=== PATIENT | male | born 1950 | race Caucasian/White ===

== ENCOUNTER 2020-05-22 09:44 | Inpatient (IN) ==
[2020-05-22] MEDS ORDERED: Aspirin 81 MG TAB.CHEW PO ONE (09:48)
[2020-05-22 10:16] LABS: Basophils # 0.1 K/mcL (0.0-0.2); Basophils % 0.8 %; Eosinophils # 0.4 K/mcL (0.0-0.6); Eosinophils % 4.3 %; Hematocrit 48.9 % (37.5-50.1); Hemoglobin 15.3 g/dL (12.9-16.9); Immature Granulocytes % 0.2 % (0-4); Lymphocytes # 2.7 K/mcL (0.6-4.6); Lymphocytes % 32.2 %; Mean Corpuscular HGB Conc 31.3 g/dL (31.6-35.5); Mean Corpuscular Hemoglobin 30.2 pg (28.0-33.3); Mean Corpuscular Volume 96.4 fL (83.0-100.0); Mean Platelet Volume 9.7 fL (9.4-12.4); Monocytes # 0.6 K/mcL (0.0-1.3); Monocytes % 7.3 %; Neutrophils # 4.6 K/mcL (1.6-8.9); Platelet Count 289 K/mcL (140-400); Red Blood Count 5.07 M/mcL (4.19-5.50); Red Cell Distribution Width 13.3 % (11.5-14.5); Segmented Neutrophils % 55.2 %; White Blood Count 8.4 K/mcL (4.3-11.1)
[2020-05-22 10:21] LABS: Prothrombin Time 11.7 Seconds (9.4-12.1)
[2020-05-22 10:24] LABS: Activated Partial Thrombo Time 29.4 Seconds (26.0-36.0)
[2020-05-22] MEDS ORDERED: Isovue-370 500 ML BOTTLE IVP ONE (10:27)
[2020-05-22 10:34] LABS: BUN/Creatinine Ratio 18 (6-26); Blood Urea Nitrogen 16 mg/dL (8-23); Calcium 9.2 mg/dL (8.6-10.3); Carbon Dioxide 30 mEq/L (23-29); Chloride 103 mEq/L (98-107); Glucose 181 mg/dL (70-105); Osmolality,Calculated 292 (280-300); Potassium 4.6 mEq/L (3.5-5.1); Sodium 138 mEq/L (136-145); Troponin I 0.03 ng/mL (< 0.04); eGFR For African Americans > 60 (> 60); eGFR For Non-African Americans > 60 (> 60)
[2020-05-22] MEDS ORDERED: Azithromycin 500 MG in 0.9 % Sodium Chloride 250 ML IVPB ONE (11:52)
[2020-05-22] MEDS ORDERED: cefTRIAXone 1,000 MG in 0.9 % Sodium Chloride Mini Bag 100 ML IVPB ONE (11:52)
[2020-05-22] MEDS ORDERED: *HR* Heparin 5,000 UNIT/ML VIAL IVP PRN ×2 (11:53)
[2020-05-22] MEDS ORDERED: *HR* Heparin 5,000 UNIT/ML VIAL IVP ONE (11:53)
[2020-05-22] MEDS ORDERED: Naloxone 0.4 MG/ML INJ IVP PRN (11:57)
[2020-05-22] MEDS ORDERED: Dextrose Gel 15 GM/37.5 ML TUBE PO PRN ×2 (11:59)
[2020-05-22] MEDS ORDERED: D5% in Water 1,000 ML IVC PRN (11:59)
[2020-05-22] MEDS ORDERED: *HR* Dextrose 50 % in Water (Vial) 50 ML VIAL IVP PRN (11:59)
[2020-05-22] MEDS ORDERED: Perflutren Lipid Microsphere 1.3 ML in 0.9 % Sodium Chloride 8.7 ML IVP PRN (12:01)
[2020-05-22] MEDS ORDERED: Ipratropium/Albuterol Neb 3 ML IH ONE (12:12)
[2020-05-22 12:33] LABS: Hematocrit 45.9 % (37.5-50.1); Hemoglobin 14.9 g/dL (12.9-16.9); Mean Corpuscular HGB Conc 32.5 g/dL (31.6-35.5); Mean Corpuscular Hemoglobin 31.9 pg (28.0-33.3); Mean Corpuscular Volume 98.3 fL (83.0-100.0); Mean Platelet Volume 9.9 fL (9.4-12.4); Platelet Count 276 K/mcL (140-400); Red Blood Count 4.67 M/mcL (4.19-5.50); Red Cell Distribution Width 13.2 % (11.5-14.5); White Blood Count 7.9 K/mcL (4.3-11.1)
[2020-05-22 12:42] LABS: Heparin anti-factor XA UFH < 0.04 IU/mL (0.30-0.70)
[2020-05-22] MEDS ORDERED: cefTRIAXone 1,000 MG in Water for inj. (sterile) 10 ML IVP ONE (13:15)
[2020-05-22] MEDS: Levalbuterol Neb 1.25 MG/3 ML IH SCH ×3 (13:16→21:22)
[2020-05-22] MEDS: Heparin 25,000UNIT/250ML 1/2NS 25,000 UNIT/250 ML IV.SOLN IVC SCH (13:19)
[2020-05-22] MEDS: Insulin LISPRO 300 UNITS/3 ML VIAL SQ SCH ×3 (14:16→20:27)
[2020-05-22] MEDS ORDERED: Nitroglycerin 0.4 MG TAB.SUBL SL PRN (14:26)
[2020-05-22] MEDS: Sucralfate 1 GM TABLET PO SCH ×2 (15:24→22:21)
[2020-05-22] MEDS: Gabapentin 300 MG CAPSULE PO SCH (15:25)
[2020-05-22] MEDS: traZODone 50 MG TABLET PO SCH (22:21)
[2020-05-22] MEDS: rOPINIRole 1 MG TABLET PO SCH (22:21)
[2020-05-23 02:44] LABS: Chol/HDL Ratio 4.6 (0-4.9)
[2020-05-23] MEDS: Levalbuterol Neb 1.25 MG/3 ML IH SCH ×4 (04:28→21:49)
[2020-05-23] MEDS: Insulin LISPRO 300 UNITS/3 ML VIAL SQ SCH ×4 (09:38→20:36)
[2020-05-23] MEDS: Sucralfate 1 GM TABLET PO SCH ×4 (09:57→20:37)
[2020-05-23] MEDS: Gabapentin 300 MG CAPSULE PO SCH (09:57)
[2020-05-23] MEDS: Heparin 25,000UNIT/250ML 1/2NS 25,000 UNIT/250 ML IV.SOLN IVC SCH (09:59)
[2020-05-23] MEDS: Tiotropium 18 MCG inhalation IH SCH (10:17)
[2020-05-23 11:33] LABS: Estimated Average Glucose 263 mg/dl
[2020-05-23 13:38] LABS: Magnesium 1.9 mg/dL (1.6-2.6)
[2020-05-23 13:51] LABS: Thyroid Stimulating Hormone 1.217 mcIU/mL (0.340-5.600)
[2020-05-23] MEDS: traZODone 50 MG TABLET PO SCH (20:37)
[2020-05-23] MEDS: rOPINIRole 1 MG TABLET PO SCH (20:37)
[2020-05-23] MEDS ORDERED: Acetaminophen 325 MG TABLET PO PRN (21:06)
[2020-05-23] MEDS ORDERED: Ondansetron 4 MG/2 ML VIAL IVP PRN (22:03)
[2020-05-23] MEDS ORDERED: Ondansetron 4 MG/2 ML VIAL ONE (22:12)
[2020-05-24] MEDS: Levalbuterol Neb 1.25 MG/3 ML IH SCH ×4 (03:17→22:35)
[2020-05-24] MEDS: Heparin 25,000UNIT/250ML 1/2NS 25,000 UNIT/250 ML IV.SOLN IVC SCH (08:15)
[2020-05-24] MEDS: Sucralfate 1 GM TABLET PO SCH ×4 (08:16→20:12)
[2020-05-24] MEDS: Gabapentin 300 MG CAPSULE PO SCH (08:17)
[2020-05-24] MEDS: Insulin LISPRO 300 UNITS/3 ML VIAL SQ SCH ×4 (08:17→20:13)
[2020-05-24] MEDS ORDERED: Heparin 1,000 UNITS/500 mL 500 ML ONE (09:42)
[2020-05-24] MEDS ORDERED: 0.9 % Sodium Chloride 2,000 ML ONE (09:42)
[2020-05-24] MEDS ORDERED: ISOVUE-370 200 ML INFUS..BTL ONE ×2 (09:42→13:19)
[2020-05-24] MEDS ORDERED: *HR* Heparin 10,000 UNIT/10 ML VIAL ONE (09:42)
[2020-05-24] MEDS ORDERED: Nitroglycerin 1,000 MCG/10 ML VIAL IV ONE (09:42)
[2020-05-24] MEDS: Tiotropium 18 MCG inhalation IH SCH (09:54)
[2020-05-24] MEDS ORDERED: *HR* FentaNYL (PF) 100 MCG/2 ML VIAL ONE (11:07)
[2020-05-24] MEDS ORDERED: *HR* Midazolam HCl 2 MG/2 ML VIAL ONE (11:07)
[2020-05-24] MEDS ORDERED: *HR* Adenosine 6 MG/2 ML VIAL IVP ONE (13:28)
[2020-05-24] MEDS ORDERED: Adenosine 90 MG/30 ML MLS IV ONE (18:55)
[2020-05-24] MEDS: rOPINIRole 1 MG TABLET PO SCH (20:11)
[2020-05-24] MEDS: traZODone 50 MG TABLET PO SCH (20:12)
[2020-05-25] MEDS: Levalbuterol Neb 1.25 MG/3 ML IH SCH ×3 (03:34→15:32)
[2020-05-25] MEDS: Sucralfate 1 GM TABLET PO SCH ×3 (08:30→18:09)
[2020-05-25] MEDS: Gabapentin 300 MG CAPSULE PO SCH (08:30)
[2020-05-25] MEDS: Insulin LISPRO 300 UNITS/3 ML VIAL SQ SCH ×3 (08:31→17:36)
[2020-05-25] MEDS: Tiotropium 18 MCG inhalation IH SCH (10:08)
[2020-05-25] MEDS ORDERED: Aspirin 81 MG TAB.CHEW PO SCH (12:30)
[2020-05-25] MEDS: Heparin 25,000UNIT/250ML 1/2NS 25,000 UNIT/250 ML IV.SOLN IVC SCH (14:19)
[2020-05-25 14:44] VITALS: BP 124/76
[2020-05-25] MEDS ORDERED: Apixaban 5 MG TABLET PO SCH (17:33)
[2020-05-25] MEDS ORDERED: Isosorbide MONOnitrate (24 HR) 30 MG TAB.ER.24H PO SCH (17:45)
[2020-05-26] MEDS ORDERED: Metoprolol XL (24 HR) Succ 50 MG TAB.ER.24H PO SCH (09:00)
[2020-05-26] MEDS ORDERED: lisinopriL 5 MG TABLET PO SCH (09:00)
== END 2020-05-25 18:56 | disposition home or self-care (01) | DRG 287 ==
LOC: 3BNU 09:44 → EMEROOARM 09:44 → SUATTDRO 12:59 → 3BNU 13:45
PROVIDERS: ADMIT Family Medicine; ATTEND Internal Medicine

== ENCOUNTER 2020-06-06 01:49 | Observation (INO) ==
[2020-06-06] MEDS ORDERED: Naloxone 0.4 MG/ML INJ IVP PRN (02:14)
[2020-06-06] MEDS ORDERED: *HR* Heparin 5,000 UNIT/ML VIAL IVP PRN ×2 (02:57)
[2020-06-06] MEDS ORDERED: Heparin 25,000UNIT/250ML 1/2NS 25,000 UNIT/250 ML IV.SOLN IVC SCH ×2 (03:00→03:17)
[2020-06-06] MEDS ORDERED: D5% in Water 1,000 ML IVC PRN (03:22)
[2020-06-06] MEDS ORDERED: Dextrose Gel 15 GM/37.5 ML TUBE PO PRN ×2 (03:22)
[2020-06-06] MEDS ORDERED: *HR* Dextrose 50 % in Water (Vial) 50 ML VIAL IVP PRN (03:22)
[2020-06-06] MEDS ORDERED: DilTIAZem 50 MG/50 ML IV.SOLN IVC SCH (04:15)
[2020-06-06] MEDS ORDERED: *HR* Metoprolol 5 MG/5 ML VIAL IVP PRN (04:41)
[2020-06-06] MEDS: Insulin LISPRO 300 UNITS/3 ML VIAL SQ SCH ×3 (04:59→18:43)
[2020-06-06 05:19] LABS: Basophils % 0.4 %; Eosinophils # 0.2 K/mcL (0.0-0.6); Eosinophils % 2.1 %; Hematocrit 42.5 % (37.5-50.1); Hemoglobin 13.6 g/dL (12.9-16.9); INR 1.3; Immature Granulocytes % 0.2 % (0-4); Lymphocytes % 23.6 %; Mean Corpuscular Hemoglobin 31.3 pg (28.0-33.3); Mean Corpuscular Volume 97.9 fL (83.0-100.0); Mean Platelet Volume 10.3 fL (9.4-12.4); Monocytes # 0.6 K/mcL (0.0-1.3); Monocytes % 6.5 %; Neutrophils # 5.7 K/mcL (1.6-8.9); Platelet Count 254 K/mcL (140-400); Prothrombin Time 14.4 Seconds (9.4-12.1); Red Blood Count 4.34 M/mcL (4.19-5.50); Red Cell Distribution Width 12.9 % (11.5-14.5); Segmented Neutrophils % 67.2 %; White Blood Count 8.5 K/mcL (4.3-11.1)
[2020-06-06 05:34] LABS: BUN/Creatinine Ratio 16 (6-26); Blood Urea Nitrogen 13 mg/dL (8-23); Calcium 8.8 mg/dL (8.6-10.3); Carbon Dioxide 26 mEq/L (23-29); Chloride 104 mEq/L (98-107); Glucose 102 mg/dL (70-105); Magnesium 1.8 mg/dL (1.6-2.6); Osmolality,Calculated 284 (280-300); Potassium 4.1 mEq/L (3.5-5.1); Sodium 137 mEq/L (136-145); eGFR For African Americans > 60 (> 60); eGFR For Non-African Americans > 60 (> 60)
[2020-06-06 05:37] LABS: Activated Partial Thrombo Time 54.4 Seconds (26.0-36.0)
[2020-06-06] MEDS: Levalbuterol Neb 0.63 MG/3 ML IH SCH ×4 (06:32→21:27)
[2020-06-06] MEDS: Metoprolol XL (24 HR) Succ 50 MG TAB.ER.24H PO SCH (09:40)
[2020-06-06] MEDS: Aspirin 81 MG TAB.CHEW PO SCH (09:41)
[2020-06-06] MEDS: Isosorbide MONOnitrate (24 HR) 30 MG TAB.ER.24H PO SCH (13:27)
[2020-06-06] MEDS: Apixaban 5 MG TABLET PO SCH ×2 (13:27→19:49)
[2020-06-06] MEDS: lisinopriL 5 MG TABLET PO SCH (13:39)
[2020-06-06] MEDS: Ondansetron 4 MG/2 ML VIAL IVP PRN (19:51)
[2020-06-06] MEDS ORDERED: Insulin DETEMIR 100 UNIT/ML X5UNITS SQ SCH (21:00)
[2020-06-07] MEDS: Levalbuterol Neb 0.63 MG/3 ML IH SCH ×4 (00:02→11:31)
[2020-06-07] MEDS: Insulin LISPRO 300 UNITS/3 ML VIAL SQ SCH ×3 (01:51→12:02)
[2020-06-07] MEDS: Ondansetron 4 MG/2 ML VIAL IVP PRN (04:16)
[2020-06-07] MEDS ORDERED: Acetaminophen 325 MG TABLET PO PRN (04:28)
[2020-06-07 05:22] LABS: Basophils % 0.5 %; Eosinophils # 0.3 K/mcL (0.0-0.6); Eosinophils % 3.2 %; Hematocrit 40.3 % (37.5-50.1); Immature Granulocytes % 0.2 % (0-4); Lymphocytes # 2.6 K/mcL (0.6-4.6); Lymphocytes % 30.7 %; Mean Corpuscular HGB Conc 32.3 g/dL (31.6-35.5); Mean Corpuscular Hemoglobin 31.3 pg (28.0-33.3); Mean Corpuscular Volume 97.1 fL (83.0-100.0); Mean Platelet Volume 10.2 fL (9.4-12.4); Monocytes # 0.7 K/mcL (0.0-1.3); Monocytes % 7.8 %; Neutrophils # 4.8 K/mcL (1.6-8.9); Platelet Count 269 K/mcL (140-400); Red Blood Count 4.15 M/mcL (4.19-5.50); Red Cell Distribution Width 12.9 % (11.5-14.5); Segmented Neutrophils % 57.6 %; White Blood Count 8.4 K/mcL (4.3-11.1)
[2020-06-07 05:36] LABS: BUN/Creatinine Ratio 21 (6-26); Blood Urea Nitrogen 19 mg/dL (8-23); Calcium 9.2 mg/dL (8.6-10.3); Carbon Dioxide 30 mEq/L (23-29); Chloride 102 mEq/L (98-107); Glucose 124 mg/dL (70-105); Osmolality,Calculated 288 (280-300); Potassium 4.1 mEq/L (3.5-5.1); Sodium 137 mEq/L (136-145); eGFR For African Americans > 60 (> 60); eGFR For Non-African Americans > 60 (> 60)
[2020-06-07] MEDS: Metoprolol XL (24 HR) Succ 50 MG TAB.ER.24H PO SCH (08:53)
[2020-06-07] MEDS: Aspirin 81 MG TAB.CHEW PO SCH (08:53)
[2020-06-07] MEDS: Apixaban 5 MG TABLET PO SCH (08:53)
[2020-06-07] MEDS: Isosorbide MONOnitrate (24 HR) 30 MG TAB.ER.24H PO SCH (08:53)
[2020-06-07] MEDS: lisinopriL 5 MG TABLET PO SCH (08:53)
[2020-06-07 11:14] VITALS: BP 114/63
== END 2020-06-07 13:52 | disposition home or self-care (01) ==
LOC: 2ANU → SUATTDRO 01:49
PROVIDERS: ADMIT Internal Medicine; ATTEND Internal Medicine

== ENCOUNTER 2020-06-29 00:33 | Observation (INO) ==
[2020-06-29] MEDS ORDERED: Albuterol 2.5 MG/3 ML NEBULIZER IH PRN (03:23)
[2020-06-29] MEDS ORDERED: Naloxone 0.4 MG/ML INJ IVP PRN (03:23)
[2020-06-29] MEDS ORDERED: Ondansetron 4 MG/2 ML VIAL IVP PRN (03:23)
[2020-06-29] MEDS ORDERED: Acetaminophen 325 MG TABLET PO ONE (03:23)
[2020-06-29] MEDS ORDERED: Dextrose Gel 15 GM/37.5 ML TUBE PO PRN ×2 (03:44)
[2020-06-29] MEDS ORDERED: *HR* Dextrose 50 % in Water (Vial) 50 ML VIAL IVP PRN (03:44)
[2020-06-29] MEDS ORDERED: D5% in Water 1,000 ML IVC PRN (03:44)
[2020-06-29 05:05] LABS: Adenovirus Not Detected (Not Detect); Bordetella Pertussis Not Detected (Not Detect); Chlamydophila pneumoniae Not Detected (Not Detect); Coronavirus 229E Not Detected (Not Detect); Coronavirus HKU1 Not Detected (Not Detect); Coronavirus NL63 Not Detected (Not Detect); Coronavirus OC43 Not Detected (Not Detect); Human Metapneumovirus Not Detected (Not Detect); Human Rhinovirus/Enterovirus Not Detected (Not Detect); Influenza A Subtype 2009 H1 Not Detected (Not Detect); Influenza B Not Detected (Not Detect); Mycoplasma pneumoniae Not Detected (Not Detect); Parainfluenza Virus 1 Not Detected (Not Detect); Parainfluenza Virus 2 Not Detected (Not Detect); Parainfluenza Virus 3 Not Detected (Not Detect); Parainfluenza Virus 4 Not Detected (Not Detect); Respiratory Syncytial Virus Not Detected (Not Detect); SARS-CoV-2 Not Detected (Not Detect)
[2020-06-29 05:39] LABS: Hematocrit 25.3 % (37.5-50.1); Hemoglobin 7.6 g/dL (12.9-16.9); Mean Corpuscular Hemoglobin 29.5 pg (28.0-33.3); Mean Corpuscular Volume 98.1 fL (83.0-100.0); Platelet Count 284 K/mcL (140-400); Red Blood Count 2.58 M/mcL (4.19-5.50); Red Cell Distribution Width 13.7 % (11.5-14.5); White Blood Count 9.4 K/mcL (4.3-11.1)
[2020-06-29 05:59] LABS: BUN/Creatinine Ratio 32 (6-26); Blood Urea Nitrogen 27 mg/dL (8-23); Calcium 8.5 mg/dL (8.6-10.3); Carbon Dioxide 26 mEq/L (23-29); Chloride 106 mEq/L (98-107); Chol/HDL Ratio 3.1 (0-4.9); Cholesterol 78 mg/dL (< 200); Glucose 124 mg/dL (70-105); HDL Cholesterol 25 mg/dL (40-59); LDL Cholesterol,Calculated 37 mg/dL (< 100); Magnesium 1.8 mg/dL (1.6-2.6); Osmolality,Calculated 295 (280-300); Phosphorous 3.4 mg/dL (2.7-4.5); Sodium 139 mEq/L (136-145); Triglycerides 78 mg/dL (< 150); eGFR For African Americans > 60 (> 60); eGFR For Non-African Americans > 60 (> 60)
[2020-06-29] MEDS ORDERED: Furosemide 20 MG/2 ML VIAL IVP ONE (06:24)
[2020-06-29] MEDS ORDERED: 0.9 % Sodium Chloride 250 ML IVC SCH (06:45)
[2020-06-29] MEDS: Ipratropium/Albuterol Neb 3 ML IH PRN ×2 (07:58→20:39)
[2020-06-29 09:15] LABS: Estimated Average Glucose 229 mg/dl; Hemoglobin A1C 9.6 %
[2020-06-29] MEDS: Insulin LISPRO 300 UNITS/3 ML VIAL SUBQ SCH ×4 (09:17→21:10)
[2020-06-29] MEDS ORDERED: Lidocaine -MPF 2% 2 ML VIAL ONE (12:13)
[2020-06-29] MEDS ORDERED: *HR* Propofol 200 MG/20 ML VIAL IVP ONE ×2 (12:14→12:34)
[2020-06-29] MEDS ORDERED: *HR* PHENYLEPHRINE 1,000 MCG/10 ML SYRINGE IVP ONE (12:23)
[2020-06-29] MEDS: Pantoprazole 40 MG VIAL IVP SCH (17:41)
[2020-06-29] MEDS: Furosemide 20 MG/2 ML VIAL IVP SCH (17:41)
[2020-06-29 18:17] LABS: Basophils # 0.1 K/mcL (0.0-0.2); Basophils % 0.6 %; Eosinophils # 0.3 K/mcL (0.0-0.6); Eosinophils % 2.9 %; Hematocrit 30.5 % (37.5-50.1); Immature Granulocytes % 0.4 % (0-4); Lymphocytes % 20.4 %; Mean Corpuscular HGB Conc 30.2 g/dL (31.6-35.5); Mean Corpuscular Hemoglobin 29.3 pg (28.0-33.3); Mean Corpuscular Volume 97.1 fL (83.0-100.0); Mean Platelet Volume 9.9 fL (9.4-12.4); Monocytes # 0.5 K/mcL (0.0-1.3); Monocytes % 4.8 %; Neutrophils # 6.8 K/mcL (1.6-8.9); Platelet Count 283 K/mcL (140-400); Red Blood Count 3.14 M/mcL (4.19-5.50); Red Cell Distribution Width 14.2 % (11.5-14.5); Segmented Neutrophils % 70.9 %; White Blood Count 9.6 K/mcL (4.3-11.1)
[2020-06-29 18:27] LABS: Hemoglobin 9.2 g/dL (12.9-16.9)
[2020-06-29] MEDS: Apixaban 5 MG TABLET PO SCH (21:10)
[2020-06-29] MEDS: Sucralfate 1 GM TABLET PO SCH (23:45)
[2020-06-30] MEDS: Pantoprazole 40 MG VIAL IVP SCH ×2 (04:53→18:22)
[2020-06-30] MEDS: traZODone 50 MG TABLET PO PRN ×2 (04:53→20:47)
[2020-06-30] MEDS: Ipratropium/Albuterol Neb 3 ML IH PRN ×3 (08:25→22:09)
[2020-06-30] MEDS: Insulin LISPRO 300 UNITS/3 ML VIAL SUBQ SCH ×4 (10:07→20:43)
[2020-06-30] MEDS: Apixaban 5 MG TABLET PO SCH ×2 (10:13→20:44)
[2020-06-30] MEDS: Furosemide 20 MG/2 ML VIAL IVP SCH ×2 (10:13→18:21)
[2020-06-30] MEDS ORDERED: rOPINIRole 1 MG TABLET PO STA (10:23)
[2020-06-30 10:31] LABS: Basophils % 0.3 %; Eosinophils # 0.3 K/mcL (0.0-0.6); Eosinophils % 3.4 %; Hematocrit 27.1 % (37.5-50.1); Hemoglobin 8.5 g/dL (12.9-16.9); Immature Granulocytes % 0.4 % (0-4); Lymphocytes # 1.9 K/mcL (0.6-4.6); Lymphocytes % 20.4 %; Mean Corpuscular HGB Conc 31.4 g/dL (31.6-35.5); Mean Corpuscular Hemoglobin 29.6 pg (28.0-33.3); Mean Corpuscular Volume 94.4 fL (83.0-100.0); Mean Platelet Volume 10.1 fL (9.4-12.4); Monocytes # 0.6 K/mcL (0.0-1.3); Monocytes % 6.4 %; Neutrophils # 6.3 K/mcL (1.6-8.9); Platelet Count 279 K/mcL (140-400); Red Blood Count 2.87 M/mcL (4.19-5.50); Red Cell Distribution Width 13.9 % (11.5-14.5); Segmented Neutrophils % 69.1 %; White Blood Count 9.1 K/mcL (4.3-11.1)
[2020-06-30 10:51] LABS: BUN/Creatinine Ratio 22 (6-26); Blood Urea Nitrogen 20 mg/dL (8-23); Calcium 8.8 mg/dL (8.6-10.3); Carbon Dioxide 31 mEq/L (23-29); Chloride 103 mEq/L (98-107); Glucose 163 mg/dL (70-105); Magnesium 1.8 mg/dL (1.6-2.6); Osmolality,Calculated 294 (280-300); Phosphorous 3.4 mg/dL (2.7-4.5); Potassium 3.6 mEq/L (3.5-5.1); Sodium 139 mEq/L (136-145); eGFR For African Americans > 60 (> 60); eGFR For Non-African Americans > 60 (> 60)
[2020-06-30 14:10] LABS: Hematocrit 25.4 % (37.5-50.1); Hemoglobin 8.2 g/dL (12.9-16.9)
[2020-06-30] MEDS: Sucralfate 1 GM TABLET PO SCH (20:44)
[2020-06-30] MEDS ORDERED: rOPINIRole 1 MG TABLET PO SCH (21:00)
[2020-06-30] MEDS ORDERED: Acetaminophen 325 MG TABLET PO PRN (23:39)
[2020-07-01] MEDS ORDERED: Melatonin 3 MG TABLET PO ONE (01:31)
[2020-07-01] MEDS: Pantoprazole 40 MG VIAL IVP SCH (05:50)
[2020-07-01] MEDS: Ipratropium/Albuterol Neb 3 ML IH PRN (05:53)
[2020-07-01 07:27] LABS: Hematocrit 26.8 % (37.5-50.1); Hemoglobin 8.3 g/dL (12.9-16.9); Mean Corpuscular Hemoglobin 29.6 pg (28.0-33.3); Mean Corpuscular Volume 95.7 fL (83.0-100.0); Mean Platelet Volume 9.7 fL (9.4-12.4); Platelet Count 290 K/mcL (140-400); Red Cell Distribution Width 13.7 % (11.5-14.5); White Blood Count 7.6 K/mcL (4.3-11.1)
[2020-07-01 07:44] VITALS: BP 110/56
[2020-07-01 07:50] LABS: Alanine Aminotransferase 8 Units/L (7-52); Albumin 3.7 g/dL (3.5-5.7); Albumin/Globulin Ratio 1.6 (1.1-2.2); Alkaline Phosphatase 70 Units/L (34-104); Aspartate Amino Transferase 9 Units/L (13-39); BUN/Creatinine Ratio 18 (6-26); Bilirubin,Total 0.5 mg/dL (0.3-1.0); Blood Urea Nitrogen 16 mg/dL (8-23); Carbon Dioxide 33 mEq/L (23-29); Chloride 102 mEq/L (98-107); Globulin 2.3 g/dL (2.4-3.5); Glucose 185 mg/dL (70-105); Osmolality,Calculated 296 (280-300); Potassium 3.7 mEq/L (3.5-5.1); Sodium 140 mEq/L (136-145); eGFR For African Americans > 60 (> 60); eGFR For Non-African Americans > 60 (> 60)
[2020-07-01] MEDS: Insulin LISPRO 300 UNITS/3 ML VIAL SUBQ SCH ×2 (08:49→11:17)
[2020-07-01] MEDS: Furosemide 20 MG/2 ML VIAL IVP SCH (08:50)
[2020-07-01] MEDS: Apixaban 5 MG TABLET PO SCH (08:50)
[2020-07-01] MEDS ORDERED: Metoprolol XL (24 HR) Succ 25 MG TAB.ER.24H PO SCH (09:00)
== END 2020-07-01 11:26 | disposition home or self-care (01) ==
LOC: 3ANU → SUATTDRO 01:45
PROVIDERS: ADMIT Internal Medicine; ATTEND Internal Medicine

== ENCOUNTER 2020-07-13 06:33 | Observation (INO) ==
[2020-07-13] MEDS ORDERED: Naloxone 0.4 MG/ML INJ IVP PRN (09:33)
[2020-07-13] MEDS ORDERED: Ondansetron 4 MG/2 ML VIAL IVP PRN (09:33)
[2020-07-13] MEDS ORDERED: Ipratropium/Albuterol Neb 3 ML IH ONE (09:33)
[2020-07-13] MEDS ORDERED: Ipratropium/Albuterol Neb 3 ML IH PRN (09:33)
[2020-07-13] MEDS ORDERED: Acetaminophen 325 MG TABLET PO PRN (09:33)
[2020-07-13 10:49] LABS: Magnesium 1.9 mg/dL (1.6-2.6)
[2020-07-13 10:50] LABS: Troponin I < 0.03 ng/mL (< 0.04)
[2020-07-13] MEDS: Apixaban 5 MG TABLET PO SCH ×2 (11:15→20:22)
[2020-07-13] MEDS: Metoprolol XL (24 HR) Succ 50 MG TAB.ER.24H PO SCH (11:15)
[2020-07-13] MEDS: Isosorbide MONOnitrate (24 HR) 30 MG TAB.ER.24H PO SCH (11:16)
[2020-07-13] MEDS ORDERED: MethylPREDNISolone 40 MG/ML VIAL IVP ONE (13:22)
[2020-07-13] MEDS ORDERED: Dextrose Gel 15 GM/37.5 ML TUBE PO PRN ×2 (13:53)
[2020-07-13] MEDS ORDERED: D5% in Water 1,000 ML IVC PRN (13:53)
[2020-07-13] MEDS ORDERED: *HR* Dextrose 50 % in Water (Vial) 50 ML VIAL IVP PRN (13:53)
[2020-07-13] MEDS: Furosemide 40 MG/4 ML VIAL IVP SCH (14:03)
[2020-07-13] MEDS: Sucralfate 1 GM TABLET PO SCH ×2 (15:56→20:23)
[2020-07-13] MEDS: Azithromycin 250 MG TABLET PO SCH (15:56)
[2020-07-13] MEDS: Ipratropium/Albuterol Neb 3 ML IH SCH ×3 (16:06→23:23)
[2020-07-13 16:19] LABS: Hematocrit 27.1 % (37.5-50.1); Hemoglobin 8.2 g/dL (12.9-16.9)
[2020-07-13] MEDS: traZODone 50 MG TABLET PO SCH (20:22)
[2020-07-13] MEDS: rOPINIRole 1 MG TABLET PO SCH (20:22)
[2020-07-13] MEDS ORDERED: Magnesium Sulfate 1 GM/102 ML PIGGYBACK IVPB ONE (22:15)
[2020-07-14] MEDS ORDERED: Furosemide 40 MG/4 ML VIAL IVP ONE ×2 (02:23→02:45)
[2020-07-14 03:12] LABS: Hematocrit 26.6 % (37.5-50.1); Hemoglobin 8.2 g/dL (12.9-16.9); Mean Corpuscular HGB Conc 30.8 g/dL (31.6-35.5); Mean Corpuscular Hemoglobin 28.3 pg (28.0-33.3); Mean Corpuscular Volume 91.7 fL (83.0-100.0); Mean Platelet Volume 9.9 fL (9.4-12.4); Platelet Count 342 K/mcL (140-400); Red Cell Distribution Width 14.3 % (11.5-14.5); White Blood Count 4.9 K/mcL (4.3-11.1)
[2020-07-14] MEDS: Ipratropium/Albuterol Neb 3 ML IH SCH ×6 (03:32→23:51)
[2020-07-14 03:36] LABS: BUN/Creatinine Ratio 21 (6-26); Blood Urea Nitrogen 19 mg/dL (8-23); Carbon Dioxide 26 mEq/L (23-29); Chloride 103 mEq/L (98-107); Glucose 208 mg/dL (70-105); Osmolality,Calculated 292 (280-300); Phosphorous 3.8 mg/dL (2.7-4.5); Potassium 4.3 mEq/L (3.5-5.1); Sodium 137 mEq/L (136-145); Troponin I 0.03 ng/mL (< 0.04); eGFR For African Americans > 60 (> 60); eGFR For Non-African Americans > 60 (> 60)
[2020-07-14 09:29] LABS: Hemoglobin 8.1 g/dL (12.9-16.9)
[2020-07-14 09:48] LABS: Basophils % 0.3 %; Eosinophils # 0.2 K/mcL (0.0-0.6); Eosinophils % 2.4 %; Immature Granulocytes % 0.6 % (0-4); Lymphocytes # 1.3 K/mcL (0.6-4.6); Lymphocytes % 18.5 %; Mean Corpuscular HGB Conc 31.3 g/dL (31.6-35.5); Mean Corpuscular Hemoglobin 27.7 pg (28.0-33.3); Mean Corpuscular Volume 88.7 fL (83.0-100.0); Monocytes # 0.5 K/mcL (0.0-1.3); Platelet Count 348 K/mcL (140-400); Red Blood Count 2.92 M/mcL (4.19-5.50); Red Cell Distribution Width 14.1 % (11.5-14.5); Segmented Neutrophils % 71.2 %
[2020-07-14] MEDS: Isosorbide MONOnitrate (24 HR) 30 MG TAB.ER.24H PO SCH (09:48)
[2020-07-14] MEDS: Furosemide 40 MG/4 ML VIAL IVP SCH (09:48)
[2020-07-14] MEDS: lisinopriL 5 MG TABLET PO SCH (09:49)
[2020-07-14 09:52] LABS: Troponin I < 0.03 ng/mL (< 0.04)
[2020-07-14] MEDS: Metoprolol XL (24 HR) Succ 50 MG TAB.ER.24H PO SCH ×2 (10:19→13:39)
[2020-07-14] MEDS: Sucralfate 1 GM TABLET PO SCH ×4 (10:26→21:41)
[2020-07-14] MEDS: Nicotine 21 MG PATCH.TD24 TD SCH (10:28)
[2020-07-14] MEDS: Azithromycin 250 MG TABLET PO SCH (10:29)
[2020-07-14] MEDS: predniSONE 20 MG TABLET PO SCH (10:29)
[2020-07-14 10:38] LABS: BUN/Creatinine Ratio 19 (6-26); Blood Urea Nitrogen 19 mg/dL (8-23); Carbon Dioxide 26 mEq/L (23-29); Chloride 103 mEq/L (98-107); Glucose 221 mg/dL (70-105); Magnesium 1.9 mg/dL (1.6-2.6); Osmolality,Calculated 295 (280-300); Sodium 138 mEq/L (136-145); eGFR For African Americans > 60 (> 60); eGFR For Non-African Americans > 60 (> 60)
[2020-07-14] MEDS ORDERED: *HR* Metoprolol 5 MG/5 ML VIAL IVP PRN (11:31)
[2020-07-14] MEDS ORDERED: Dextrose Gel 15 GM/37.5 ML TUBE PO PRN ×2 (13:23)
[2020-07-14] MEDS ORDERED: *HR* Dextrose 50 % in Water (Vial) 50 ML VIAL IVP PRN (13:23)
[2020-07-14] MEDS ORDERED: D5% in Water 1,000 ML IVC PRN (13:23)
[2020-07-14] MEDS ORDERED: *HR* LORazepam 0.5 MG TABLET PO ONE (14:08)
[2020-07-14] MEDS: Insulin LISPRO 300 UNITS/3 ML VIAL SUBQ SCH ×2 (16:11→21:34)
[2020-07-14] MEDS ORDERED: Nitroglycerin 0.4 MG TAB.SUBL SL PRN (20:34)
[2020-07-14] MEDS: *HR* LORazepam 1 MG TABLET PO PRN (21:41)
[2020-07-14] MEDS: traZODone 50 MG TABLET PO SCH (21:42)
[2020-07-14] MEDS: rOPINIRole 1 MG TABLET PO SCH (21:42)
[2020-07-15 02:53] LABS: Basophils % 0.1 %; Hematocrit 24.6 % (37.5-50.1); Hemoglobin 7.7 g/dL (12.9-16.9); Immature Granulocytes % 0.4 % (0-4); Lymphocytes # 1.7 K/mcL (0.6-4.6); Lymphocytes % 18.6 %; Mean Corpuscular HGB Conc 31.3 g/dL (31.6-35.5); Mean Corpuscular Hemoglobin 28.4 pg (28.0-33.3); Mean Corpuscular Volume 90.8 fL (83.0-100.0); Mean Platelet Volume 10.4 fL (9.4-12.4); Monocytes # 0.7 K/mcL (0.0-1.3); Monocytes % 7.5 %; Neutrophils # 6.8 K/mcL (1.6-8.9); Platelet Count 304 K/mcL (140-400); Red Blood Count 2.71 M/mcL (4.19-5.50); Red Cell Distribution Width 14.2 % (11.5-14.5); Segmented Neutrophils % 73.4 %; White Blood Count 9.2 K/mcL (4.3-11.1)
[2020-07-15 03:02] LABS: Estimated Average Glucose 200 mg/dl; Hemoglobin A1C 8.6 %
[2020-07-15 03:13] LABS: BUN/Creatinine Ratio 27 (6-26); Blood Urea Nitrogen 25 mg/dL (8-23); Calcium 8.8 mg/dL (8.6-10.3); Carbon Dioxide 27 mEq/L (23-29); Chloride 103 mEq/L (98-107); Glucose 250 mg/dL (70-105); Magnesium 2.1 mg/dL (1.6-2.6); Osmolality,Calculated 297 (280-300); Potassium 4.1 mEq/L (3.5-5.1); Sodium 137 mEq/L (136-145); eGFR For African Americans > 60 (> 60); eGFR For Non-African Americans > 60 (> 60)
[2020-07-15 03:37] LABS: Folate 7.7 ng/mL (3.0-16.0)
[2020-07-15] MEDS: Ipratropium/Albuterol Neb 3 ML IH SCH ×5 (03:49→20:33)
[2020-07-15 04:03] LABS: Ferritin < 8 ng/mL (20-250); Iron < 10 mcg/dL (65-175); Transferrin 314 mg/dL (203-362)
[2020-07-15] MEDS: Insulin LISPRO 300 UNITS/3 ML VIAL SUBQ SCH ×4 (07:59→21:21)
[2020-07-15] MEDS: Nicotine 21 MG PATCH.TD24 TD SCH (08:03)
[2020-07-15] MEDS: Isosorbide MONOnitrate (24 HR) 60 MG TAB.ER.24H PO SCH (08:04)
[2020-07-15] MEDS: Azithromycin 250 MG TABLET PO SCH (08:04)
[2020-07-15] MEDS: lisinopriL 5 MG TABLET PO SCH (08:04)
[2020-07-15] MEDS: predniSONE 20 MG TABLET PO SCH (08:05)
[2020-07-15] MEDS: Sucralfate 1 GM TABLET PO SCH ×4 (08:05→21:59)
[2020-07-15] MEDS: Spironolactone 25 MG TABLET PO SCH (08:05)
[2020-07-15] MEDS: Metoprolol XL (24 HR) Succ 50 MG TAB.ER.24H PO SCH (08:05)
[2020-07-15] MEDS: Gabapentin 300 MG CAPSULE PO SCH (08:06)
[2020-07-15] MEDS ORDERED: Cyanocobalamin (B-12) 1,000 MCG/ML VIAL SQ ONE (08:20)
[2020-07-15] MEDS: Iron Sucrose Complex 250 MG in 0.9 % Sodium Chloride 250 ML IVPB SCH (09:41)
[2020-07-15] MEDS: rOPINIRole 1 MG TABLET PO SCH (21:59)
[2020-07-15] MEDS: traZODone 50 MG TABLET PO SCH (21:59)
[2020-07-15] MEDS: *HR* LORazepam 1 MG TABLET PO PRN (22:03)
[2020-07-16] MEDS: Ipratropium/Albuterol Neb 3 ML IH SCH ×4 (00:03→12:34)
[2020-07-16 02:29] LABS: Basophils % 0.2 %; Eosinophils % 0.1 %; Hematocrit 25.3 % (37.5-50.1); Hemoglobin 7.6 g/dL (12.9-16.9); Immature Granulocytes % 0.5 % (0-4); Lymphocytes % 20.3 %; Mean Corpuscular Volume 93.4 fL (83.0-100.0); Mean Platelet Volume 10.3 fL (9.4-12.4); Monocytes # 0.7 K/mcL (0.0-1.3); Monocytes % 7.6 %; Neutrophils # 6.9 K/mcL (1.6-8.9); Platelet Count 305 K/mcL (140-400); Red Blood Count 2.71 M/mcL (4.19-5.50); Red Cell Distribution Width 14.1 % (11.5-14.5); Segmented Neutrophils % 71.3 %; White Blood Count 9.7 K/mcL (4.3-11.1)
[2020-07-16 02:49] LABS: BUN/Creatinine Ratio 24 (6-26); Blood Urea Nitrogen 23 mg/dL (8-23); Calcium 8.9 mg/dL (8.6-10.3); Carbon Dioxide 30 mEq/L (23-29); Chloride 104 mEq/L (98-107); Glucose 245 mg/dL (70-105); Magnesium 2.2 mg/dL (1.6-2.6); Osmolality,Calculated 302 (280-300); Potassium 4.2 mEq/L (3.5-5.1); Sodium 140 mEq/L (136-145); eGFR For African Americans > 60 (> 60); eGFR For Non-African Americans > 60 (> 60)
[2020-07-16] MEDS ORDERED: Pantoprazole 40 MG VIAL IVP SCH (09:00)
[2020-07-16] MEDS: Insulin LISPRO 300 UNITS/3 ML VIAL SUBQ SCH ×2 (09:26→11:42)
[2020-07-16] MEDS: lisinopriL 5 MG TABLET PO SCH ×2 (09:51→11:41)
[2020-07-16] MEDS: Metoprolol XL (24 HR) Succ 50 MG TAB.ER.24H PO SCH ×2 (09:51→11:41)
[2020-07-16] MEDS: Gabapentin 300 MG CAPSULE PO SCH ×2 (09:52→11:41)
[2020-07-16] MEDS: Spironolactone 25 MG TABLET PO SCH ×2 (09:52→11:42)
[2020-07-16] MEDS: Isosorbide MONOnitrate (24 HR) 60 MG TAB.ER.24H PO SCH ×2 (09:52→11:41)
[2020-07-16] MEDS: Azithromycin 250 MG TABLET PO SCH ×2 (09:52→11:42)
[2020-07-16] MEDS: Sucralfate 1 GM TABLET PO SCH ×3 (09:53→11:41)
[2020-07-16] MEDS: predniSONE 20 MG TABLET PO SCH ×2 (09:53→11:41)
[2020-07-16] MEDS: Iron Sucrose Complex 250 MG in 0.9 % Sodium Chloride 250 ML IVPB SCH (09:53)
[2020-07-16] MEDS: Cyanocobalamin (B-12) 1,000 MCG TABLET PO SCH ×2 (09:53→11:41)
[2020-07-16] MEDS: Nicotine 21 MG PATCH.TD24 TD SCH ×2 (10:10→11:25)
[2020-07-16 11:16] VITALS: BP 109/64
== END 2020-07-16 14:05 | disposition home or self-care (01) ==
LOC: 3NENU → SUATTDRO 08:26
PROVIDERS: ADMIT Internal Medicine; ATTEND Pharmacist

== ENCOUNTER 2020-07-29 22:14 | Inpatient (IN) ==
[2020-07-30] MEDS ORDERED: Naloxone 0.4 MG/ML INJ IVP PRN (01:42)
[2020-07-30 02:15] LABS: Hemoglobin 8.1 g/dL (12.9-16.9); Immature Granulocytes % 0.4 % (0-4)
[2020-07-30 02:16] LABS: Basophils # 0.1 K/mcL (0.0-0.2); Basophils % 0.6 %; Eosinophils # 0.2 K/mcL (0.0-0.6); Eosinophils % 2.2 %; Hematocrit 27.3 % (37.5-50.1); INR 1.5; Lymphocytes # 2.3 K/mcL (0.6-4.6); Lymphocytes % 22.8 %; Mean Corpuscular HGB Conc 29.7 g/dL (31.6-35.5); Mean Corpuscular Hemoglobin 28.3 pg (28.0-33.3); Mean Corpuscular Volume 95.5 fL (83.0-100.0); Mean Platelet Volume 9.6 fL (9.4-12.4); Monocytes # 0.6 K/mcL (0.0-1.3); Monocytes % 6.1 %; Platelet Count 385 K/mcL (140-400); Prothrombin Time 17.3 Seconds (9.4-12.1); Red Blood Count 2.86 M/mcL (4.19-5.50); Red Cell Distribution Width 17.3 % (11.5-14.5); Segmented Neutrophils % 67.9 %; White Blood Count 10.1 K/mcL (4.3-11.1)
[2020-07-30 02:19] LABS: Activated Partial Thrombo Time 32.4 Seconds (26.0-36.0)
[2020-07-30 02:22] LABS: Neutrophils # 6.9 K/mcL (1.6-8.9)
[2020-07-30 02:33] LABS: Alanine Aminotransferase 10 Units/L (7-52); Albumin 3.6 g/dL (3.5-5.7); Albumin/Globulin Ratio 1.6 (1.1-2.2); Alkaline Phosphatase 62 Units/L (34-104); Aspartate Amino Transferase 10 Units/L (13-39); BUN/Creatinine Ratio 26 (6-26); Bilirubin,Total 0.6 mg/dL (0.3-1.0); Blood Urea Nitrogen 27 mg/dL (8-23); Calcium 8.9 mg/dL (8.6-10.3); Carbon Dioxide 31 mEq/L (23-29); Chloride 103 mEq/L (98-107); Globulin 2.2 g/dL (2.4-3.5); Glucose 112 mg/dL (70-105); Osmolality,Calculated 296 (280-300); Potassium 4.4 mEq/L (3.5-5.1); Sodium 140 mEq/L (136-145); Total Protein 5.8 g/dL (6.4-8.9); eGFR For African Americans > 60 (> 60); eGFR For Non-African Americans > 60 (> 60)
[2020-07-30 02:38] LABS: Anisocytosis 1+ (Not Present); Platelet Estimate Normal (Normal); Poikilocytosis 1+ (Not Present); Troponin I 0.17 ng/mL (< 0.04)
[2020-07-30 02:51] LABS: Thyroid Stimulating Hormone 0.482 mcIU/mL (0.340-5.600)
[2020-07-30] MEDS ORDERED: Perflutren Lipid Microsphere 1.3 ML in 0.9 % Sodium Chloride 8.7 ML IVP PRN (04:35)
[2020-07-30] MEDS: Melatonin 3 MG TABLET PO PRN (04:41)
[2020-07-30] MEDS ORDERED: Albuterol 2.5 MG/3 ML NEBULIZER IH PRN (05:04)
[2020-07-30] MEDS ORDERED: Nitroglycerin 0.4 MG TAB.SUBL SL PRN (05:04)
[2020-07-30] MEDS ORDERED: *HR* Dextrose 50 % in Water (Vial) 50 ML VIAL IVP PRN (05:07)
[2020-07-30] MEDS ORDERED: Dextrose Gel 15 GM/37.5 ML TUBE PO PRN ×2 (05:07)
[2020-07-30] MEDS ORDERED: D5% in Water 1,000 ML IVC PRN (05:07)
[2020-07-30] MEDS: Sucralfate 1 GM TABLET PO SCH ×4 (08:37→20:46)
[2020-07-30] MEDS: Gabapentin 300 MG CAPSULE PO SCH (08:37)
[2020-07-30] MEDS: Metoprolol XL (24 HR) Succ 50 MG TAB.ER.24H PO SCH (08:37)
[2020-07-30] MEDS: Isosorbide MONOnitrate (24 HR) 60 MG TAB.ER.24H PO SCH (08:38)
[2020-07-30] MEDS: Apixaban 5 MG TABLET PO SCH ×2 (08:38→20:46)
[2020-07-30] MEDS: Nicotine 21 MG PATCH.TD24 TD SCH (08:38)
[2020-07-30] MEDS: Cyanocobalamin (B-12) 1,000 MCG TABLET PO SCH (08:38)
[2020-07-30] MEDS: Spironolactone 25 MG TABLET PO SCH (08:38)
[2020-07-30] MEDS: Tiotropium 10 INH DOSE IH SCH (09:31)
[2020-07-30] MEDS: Insulin LISPRO 300 UNITS/3 ML VIAL SUBQ SCH ×3 (09:37→16:15)
[2020-07-30] MEDS: lisinopriL 5 MG TABLET PO SCH (11:22)
[2020-07-30] MEDS: Ondansetron ODT 4 MG TAB.RAPDIS SL PRN (18:26)
[2020-07-30] MEDS: rOPINIRole 1 MG TABLET PO SCH (20:45)
[2020-07-30] MEDS: traZODone 50 MG TABLET PO SCH (20:46)
[2020-07-31] MEDS: Melatonin 3 MG TABLET PO PRN ×2 (03:25→20:43)
[2020-07-31] MEDS ORDERED: 0.9 % Sodium Chloride 500 ML IVC ONE (03:39)
[2020-07-31 04:25] LABS: Hematocrit 26.3 % (37.5-50.1); Mean Corpuscular HGB Conc 30.4 g/dL (31.6-35.5); Mean Corpuscular Hemoglobin 28.6 pg (28.0-33.3); Mean Corpuscular Volume 93.9 fL (83.0-100.0); Mean Platelet Volume 9.9 fL (9.4-12.4); Platelet Count 370 K/mcL (140-400); Red Cell Distribution Width 16.4 % (11.5-14.5); White Blood Count 7.9 K/mcL (4.3-11.1)
[2020-07-31 04:42] LABS: BUN/Creatinine Ratio 22 (6-26); Blood Urea Nitrogen 19 mg/dL (8-23); Carbon Dioxide 31 mEq/L (23-29); Chloride 102 mEq/L (98-107); Glucose 126 mg/dL (70-105); Osmolality,Calculated 290 (280-300); Potassium 4.3 mEq/L (3.5-5.1); Sodium 138 mEq/L (136-145); eGFR For African Americans > 60 (> 60); eGFR For Non-African Americans > 60 (> 60)
[2020-07-31] MEDS: Tiotropium 10 INH DOSE IH SCH (07:45)
[2020-07-31] MEDS: Ondansetron ODT 4 MG TAB.RAPDIS SL PRN (08:17)
[2020-07-31] MEDS: Insulin LISPRO 300 UNITS/3 ML VIAL SUBQ SCH ×3 (08:17→17:03)
[2020-07-31] MEDS: Sucralfate 1 GM TABLET PO SCH ×4 (08:17→20:43)
[2020-07-31] MEDS ORDERED: *HR* Promethazine 25 MG/ML VIAL IM ONE (08:23)
[2020-07-31] MEDS: Nicotine 21 MG PATCH.TD24 TD SCH (09:42)
[2020-07-31] MEDS: Metoprolol XL (24 HR) Succ 50 MG TAB.ER.24H PO SCH (10:14)
[2020-07-31] MEDS: Cyanocobalamin (B-12) 1,000 MCG TABLET PO SCH (10:15)
[2020-07-31] MEDS: lisinopriL 5 MG TABLET PO SCH (10:15)
[2020-07-31] MEDS: Apixaban 5 MG TABLET PO SCH (10:15)
[2020-07-31] MEDS: Gabapentin 300 MG CAPSULE PO SCH (10:15)
[2020-07-31] MEDS: Spironolactone 25 MG TABLET PO SCH (10:15)
[2020-07-31] MEDS: Isosorbide MONOnitrate (24 HR) 60 MG TAB.ER.24H PO SCH (10:15)
[2020-07-31 10:18] LABS: Troponin I 0.07 ng/mL (< 0.04)
[2020-07-31 13:12] LABS: Chol/HDL Ratio 3.2 (0-4.9)
[2020-07-31] MEDS: traZODone 50 MG TABLET PO SCH (20:43)
[2020-07-31] MEDS: rOPINIRole 1 MG TABLET PO SCH (20:43)
[2020-08-01] MEDS: *HR* LORazepam 1 MG TABLET PO PRN ×2 (02:33→19:45)
[2020-08-01 02:57] LABS: Hematocrit 26.8 % (37.5-50.1); Hemoglobin 8.2 g/dL (12.9-16.9); Mean Corpuscular HGB Conc 30.6 g/dL (31.6-35.5); Mean Corpuscular Hemoglobin 28.6 pg (28.0-33.3); Mean Corpuscular Volume 93.4 fL (83.0-100.0); Mean Platelet Volume 9.7 fL (9.4-12.4); Platelet Count 376 K/mcL (140-400); Red Blood Count 2.87 M/mcL (4.19-5.50); White Blood Count 7.3 K/mcL (4.3-11.1)
[2020-08-01 03:16] LABS: BUN/Creatinine Ratio 14 (6-26); Blood Urea Nitrogen 10 mg/dL (8-23); Calcium 9.2 mg/dL (8.6-10.3); Carbon Dioxide 32 mEq/L (23-29); Chloride 102 mEq/L (98-107); Glucose 126 mg/dL (70-105); Osmolality,Calculated 285 (280-300); Potassium 4.4 mEq/L (3.5-5.1); Sodium 137 mEq/L (136-145); eGFR For African Americans > 60 (> 60); eGFR For Non-African Americans > 60 (> 60)
[2020-08-01 03:40] LABS: Estimated Average Glucose 186 mg/dl; Hemoglobin A1C 8.1 %
[2020-08-01] MEDS: Tiotropium 10 INH DOSE IH SCH (07:46)
[2020-08-01] MEDS: Insulin LISPRO 300 UNITS/3 ML VIAL SUBQ SCH ×3 (08:53→17:30)
[2020-08-01] MEDS: Nicotine 21 MG PATCH.TD24 TD SCH (08:54)
[2020-08-01] MEDS: Gabapentin 300 MG CAPSULE PO SCH (08:54)
[2020-08-01] MEDS: Sucralfate 1 GM TABLET PO SCH ×4 (08:55→19:45)
[2020-08-01] MEDS: Isosorbide MONOnitrate (24 HR) 30 MG TAB.ER.24H PO SCH (08:55)
[2020-08-01] MEDS: Metoprolol XL (24 HR) Succ 50 MG TAB.ER.24H PO SCH (08:55)
[2020-08-01] MEDS: Cyanocobalamin (B-12) 1,000 MCG TABLET PO SCH (08:55)
[2020-08-01] MEDS: lisinopriL 5 MG TABLET PO SCH (10:06)
[2020-08-01] MEDS: Spironolactone 25 MG TABLET PO SCH (10:06)
[2020-08-01] MEDS: Furosemide 20 MG TABLET PO SCH (10:06)
[2020-08-01] MEDS: Aspirin Enteric Coated 81 MG Tablet PO SCH (13:03)
[2020-08-01] MEDS: Melatonin 3 MG TABLET PO PRN (19:45)
[2020-08-01] MEDS: traZODone 50 MG TABLET PO SCH (19:45)
[2020-08-02] MEDS: *HR* LORazepam 1 MG TABLET PO PRN (06:25)
[2020-08-02 08:05] LABS: Hemoglobin 9.4 g/dL (12.9-16.9); Mean Corpuscular HGB Conc 29.4 g/dL (31.6-35.5); Mean Corpuscular Hemoglobin 27.7 pg (28.0-33.3); Mean Corpuscular Volume 94.4 fL (83.0-100.0); Mean Platelet Volume 9.6 fL (9.4-12.4); Platelet Count 424 K/mcL (140-400); Red Blood Count 3.39 M/mcL (4.19-5.50)
[2020-08-02 08:08] LABS: Basophils % 0.6 %; Eosinophils # 0.3 K/mcL (0.0-0.6); Eosinophils % 4.9 %; Hematocrit 32.5 % (37.5-50.1); Hemoglobin 9.7 g/dL (12.9-16.9); Immature Granulocytes % 0.3 % (0-4); Lymphocytes # 1.7 K/mcL (0.6-4.6); Lymphocytes % 26.7 %; Mean Corpuscular HGB Conc 29.8 g/dL (31.6-35.5); Mean Corpuscular Hemoglobin 28.1 pg (28.0-33.3); Mean Corpuscular Volume 94.2 fL (83.0-100.0); Mean Platelet Volume 9.6 fL (9.4-12.4); Monocytes # 0.5 K/mcL (0.0-1.3); Monocytes % 7.7 %; Neutrophils # 3.9 K/mcL (1.6-8.9); Platelet Count 425 K/mcL (140-400); Red Blood Count 3.45 M/mcL (4.19-5.50); Segmented Neutrophils % 59.8 %; White Blood Count 6.5 K/mcL (4.3-11.1)
[2020-08-02] MEDS: Tiotropium 10 INH DOSE IH SCH (08:23)
[2020-08-02 08:24] LABS: BUN/Creatinine Ratio 15 (6-26); Blood Urea Nitrogen 12 mg/dL (8-23); Calcium 9.1 mg/dL (8.6-10.3); Carbon Dioxide 32 mEq/L (23-29); Chloride 102 mEq/L (98-107); Glucose 136 mg/dL (70-105); Osmolality,Calculated 292 (280-300); Potassium 4.2 mEq/L (3.5-5.1); Sodium 140 mEq/L (136-145); eGFR For African Americans > 60 (> 60); eGFR For Non-African Americans > 60 (> 60)
[2020-08-02] MEDS: Insulin LISPRO 300 UNITS/3 ML VIAL SUBQ SCH ×2 (08:30→11:43)
[2020-08-02] MEDS: Aspirin Enteric Coated 81 MG Tablet PO SCH (08:48)
[2020-08-02] MEDS: Nicotine 21 MG PATCH.TD24 TD SCH (08:48)
[2020-08-02] MEDS: Furosemide 20 MG TABLET PO SCH (08:49)
[2020-08-02] MEDS: Gabapentin 300 MG CAPSULE PO SCH (08:49)
[2020-08-02] MEDS: Sucralfate 1 GM TABLET PO SCH ×2 (08:49→11:43)
[2020-08-02] MEDS: Metoprolol XL (24 HR) Succ 50 MG TAB.ER.24H PO SCH (08:49)
[2020-08-02] MEDS: Spironolactone 25 MG TABLET PO SCH (08:49)
[2020-08-02] MEDS: Cyanocobalamin (B-12) 1,000 MCG TABLET PO SCH (08:49)
[2020-08-02] MEDS: Isosorbide MONOnitrate (24 HR) 30 MG TAB.ER.24H PO SCH (08:49)
[2020-08-02] MEDS: lisinopriL 5 MG TABLET PO SCH (08:50)
[2020-08-02 11:33] VITALS: BP 101/65
== END 2020-08-02 16:05 | disposition home health service (06) ==
LOC: 2ANU → SUATTDRO 07-30 01:33
PROVIDERS: ADMIT Student in an Organized Health Care Education/Training Program; ATTEND Internal Medicine

== ENCOUNTER 2020-08-09 12:48 | Inpatient (IN) ==
[2020-08-09] MEDS ORDERED: CeFAZolin Syr 2,000MG/20 ML 2,000 MG/20 ML SYRINGE IVPB ONE (13:46)
[2020-08-09] MEDS ORDERED: Ondansetron 4 MG/2 ML VIAL IVP PRN (13:51)
[2020-08-09] MEDS ORDERED: Albuterol 2.5 MG/3 ML NEBULIZER IH PRN ×2 (13:51→19:36)
[2020-08-09] MEDS ORDERED: *HR* OxyCODONE Immed Rel 5 MG TABLET PO PRN ×2 (13:51→19:36)
[2020-08-09] MEDS ORDERED: Acetaminophen IV 1,000 MG/100 ML BAG IVPB ONE (13:51)
[2020-08-09] MEDS ORDERED: *HR* FentaNYL (PF) 100 MCG/2 ML VIAL IVP PRN (13:51)
[2020-08-09] MEDS ORDERED: Heparin 1,000 UNITS/500 mL 500 ML ONE (13:52)
[2020-08-09] MEDS ORDERED: Protamine Sulfate 50 MG/5 ML VIAL IVP ONE (13:52)
[2020-08-09] MEDS ORDERED: *HR* Rocuronium Bromide 50 MG/5 ML VIAL ONE (14:00)
[2020-08-09] MEDS ORDERED: *HR* FentaNYL (PF) 100 MCG/2 ML VIAL ONE (14:00)
[2020-08-09] MEDS ORDERED: *HR* Propofol 200 MG/20 ML VIAL IVP ONE (14:00)
[2020-08-09] MEDS ORDERED: Dexamethasone 4 MG/ML VIAL ONE (14:00)
[2020-08-09] MEDS ORDERED: *HR* Succinylcholine 200 MG/10 ML VIAL IVP ONE (14:00)
[2020-08-09] MEDS ORDERED: *HR* Remifentanil 2 MG VIAL IVP ONE (14:00)
[2020-08-09] MEDS ORDERED: Lidocaine -MPF 4% 5 ML AMPUL ONE (14:00)
[2020-08-09] MEDS ORDERED: Ondansetron 4 MG/2 ML VIAL ONE (14:00)
[2020-08-09] MEDS ORDERED: Lidocaine -MPF 2% 2 ML VIAL ONE (14:00)
[2020-08-09] MEDS ORDERED: Vancomycin 1,500 MG/265 ML IV.SOLN IVPB ONE (14:06)
[2020-08-09] MEDS ORDERED: *HR* Midazolam HCl 2 MG/2 ML VIAL ONE (14:16)
[2020-08-09] MEDS ORDERED: Vancomycin 1,000 MG, Sodium Chloride IRRigation 1,000 ML IR ONE (14:30)
[2020-08-09] MEDS ORDERED: EPHEDrine 50 MG/ML VIAL ONE (15:13)
[2020-08-09] MEDS ORDERED: *HR* Heparin 5,000 UNIT/ML VIAL ONE ×2 (15:47→16:47)
[2020-08-09] MEDS ORDERED: Ringers Solution, Lactated 1,000 ML ONE (19:18)
[2020-08-09] MEDS ORDERED: Dextrose Gel 15 GM/37.5 ML TUBE PO PRN ×2 (19:36)
[2020-08-09] MEDS ORDERED: *HR* Dextrose 50 % in Water (Vial) 50 ML VIAL IVP PRN (19:36)
[2020-08-09] MEDS ORDERED: Acetaminophen 325 MG TABLET PO PRN (19:36)
[2020-08-09] MEDS ORDERED: Naloxone 0.4 MG/ML INJ IVP PRN (19:36)
[2020-08-09] MEDS ORDERED: *HR* HYDROcodone/Acet 5/325 mg TABLET PO PRN (19:36)
[2020-08-09] MEDS ORDERED: *HR* Labetalol 20 MG/4 ML SYRINGE IVP PRN (19:36)
[2020-08-09] MEDS ORDERED: 0.9 % Sodium Chloride 500 ML IVC SCH (19:36)
[2020-08-09] MEDS ORDERED: *HR* LORazepam 1 MG TABLET PO PRN (19:36)
[2020-08-09] MEDS ORDERED: Nitroglycerin 0.4 MG TAB.SUBL SL PRN (19:36)
[2020-08-09] MEDS ORDERED: D5% in Water 1,000 ML IVC PRN (19:36)
[2020-08-09] MEDS: Sucralfate 1 GM TABLET PO SCH (20:42)
[2020-08-09] MEDS: CeFAZolin 2 GM/120 ML BAG IVPB SCH (20:42)
[2020-08-09] MEDS ORDERED: traZODone 50 MG TABLET PO SCH (21:00)
[2020-08-09] MEDS ORDERED: lisinopriL 5 MG TABLET PO SCH (21:00)
[2020-08-09] MEDS ORDERED: Insulin LISPRO 300 UNITS/3 ML VIAL SUBQ SCH (21:00)
[2020-08-09] MEDS: Insulin LISPRO 300 UNITS/3 ML VIAL SUBQ SCH (21:15)
[2020-08-09] MEDS: *HR* Metoprolol 5 MG/5 ML VIAL IVP SCH (21:15)
[2020-08-10] MEDS: *HR* Metoprolol 5 MG/5 ML VIAL IVP SCH ×2 (00:36→08:16)
[2020-08-10] MEDS ORDERED: Vancomycin 1,500 MG/265 ML IV.SOLN IVPB ONE (03:00)
[2020-08-10] MEDS: CeFAZolin 2 GM/120 ML BAG IVPB SCH (04:39)
[2020-08-10] MEDS ORDERED: *HR* Heparin 5,000 UNIT/ML VIAL SQ SCH ×2 (06:00)
[2020-08-10 07:27] VITALS: BP 103/54
[2020-08-10] MEDS: Insulin LISPRO 300 UNITS/3 ML VIAL SUBQ SCH (08:16)
[2020-08-10] MEDS: Sucralfate 1 GM TABLET PO SCH (08:19)
[2020-08-10] MEDS ORDERED: Metoprolol XL (24 HR) Succ 25 MG TAB.ER.24H PO SCH (09:00)
[2020-08-10] MEDS ORDERED: Furosemide 20 MG TABLET PO SCH (09:00)
[2020-08-10] MEDS ORDERED: Aspirin Enteric Coated 81 MG Tablet PO SCH (09:00)
[2020-08-10] MEDS ORDERED: Cyanocobalamin (B-12) 1,000 MCG TABLET PO SCH (09:00)
[2020-08-10] MEDS ORDERED: Nicotine 21 MG PATCH.TD24 TD SCH (09:00)
[2020-08-10] MEDS ORDERED: Spironolactone 25 MG TABLET PO SCH (09:00)
[2020-08-10] MEDS ORDERED: Isosorbide MONOnitrate (24 HR) 30 MG TAB.ER.24H PO SCH (09:00)
[2020-08-10] MEDS ORDERED: Gabapentin 300 MG CAPSULE PO SCH (09:00)
[2020-08-10] MEDS ORDERED: Tiotropium 10 INH DOSE IH SCH (10:00)
== END 2020-08-10 11:48 | disposition home health service (06) | DRG 37 ==
LOC: SAMDAY 12:48 → 2NNU 20:17
PROVIDERS: ADMIT Surgery; ATTEND Surgery

== ENCOUNTER 2020-09-06 10:33 | Inpatient (IN) ==
[2020-09-06] MEDS ORDERED: Pantoprazole 40 MG VIAL IVP ONE (10:59)
[2020-09-06] MEDS ORDERED: 0.9 % Sodium Chloride 250 ML ONE ×2 (11:04→23:04)
[2020-09-06 11:08] LABS: Hematocrit 19.5 % (37.5-50.1); Mean Corpuscular HGB Conc 28.7 g/dL (31.6-35.5); Mean Corpuscular Hemoglobin 25.3 pg (28.0-33.3); Mean Corpuscular Volume 88.2 fL (83.0-100.0); Platelet Count 331 K/mcL (140-400); Red Blood Count 2.21 M/mcL (4.19-5.50); Red Cell Distribution Width 17.2 % (11.5-14.5)
[2020-09-06 11:11] LABS: Hemoglobin 5.6 g/dL (12.9-16.9)
[2020-09-06 11:33] LABS: Albumin/Globulin Ratio 1.6 (1.1-2.2); Bilirubin,Direct 0.1 mg/dL (0.0-0.2); Bilirubin,Indirect 0.4 mg/dL (0.0-1.0); Bilirubin,Total 0.5 mg/dL (0.3-1.0); Calcium 9.6 mg/dL (8.6-10.3); Globulin 2.5 g/dL (2.4-3.5); Potassium 4.8 mEq/L (3.5-5.1); Total Protein 6.5 g/dL (6.4-8.9)
[2020-09-06] MEDS ORDERED: Naloxone 0.4 MG/ML INJ IVP PRN (11:42)
[2020-09-06 11:48] LABS: Troponin I 0.13 ng/mL (< 0.04)
[2020-09-06] MEDS: Ondansetron 4 MG/2 ML VIAL IVP PRN (12:50)
[2020-09-06] MEDS ORDERED: Albuterol 2.5 MG/3 ML NEBULIZER IH PRN (12:54)
[2020-09-06] MEDS ORDERED: *HR* Metoprolol 5 MG/5 ML VIAL IVP PRN (12:57)
[2020-09-06] MEDS: Pantoprazole 40 MG VIAL IVP SCH (17:48)
[2020-09-06 20:15] LABS: Basophils % 0.4 %; Eosinophils # 0.3 K/mcL (0.0-0.6); Hematocrit 22.3 % (37.5-50.1); Hemoglobin 6.8 g/dL (12.9-16.9); Immature Granulocytes % 0.4 % (0-4); Lymphocytes # 2.2 K/mcL (0.6-4.6); Lymphocytes % 29.5 %; Mean Corpuscular HGB Conc 30.5 g/dL (31.6-35.5); Mean Corpuscular Hemoglobin 26.3 pg (28.0-33.3); Mean Corpuscular Volume 86.1 fL (83.0-100.0); Mean Platelet Volume 10.3 fL (9.4-12.4); Monocytes # 0.7 K/mcL (0.0-1.3); Monocytes % 9.4 %; Neutrophils # 4.1 K/mcL (1.6-8.9); Platelet Count 280 K/mcL (140-400); Red Blood Count 2.59 M/mcL (4.19-5.50); Red Cell Distribution Width 16.4 % (11.5-14.5); Segmented Neutrophils % 56.3 %; White Blood Count 7.3 K/mcL (4.3-11.1)
[2020-09-06 23:08] LABS: Adenovirus Not Detected (Not Detect); Bordetella Pertussis Not Detected (Not Detect); Chlamydophila pneumoniae Not Detected (Not Detect); Coronavirus 229E Not Detected (Not Detect); Coronavirus HKU1 Not Detected (Not Detect); Coronavirus NL63 Not Detected (Not Detect); Coronavirus OC43 Not Detected (Not Detect); Human Metapneumovirus Not Detected (Not Detect); Human Rhinovirus/Enterovirus Not Detected (Not Detect); Influenza A Subtype 2009 H1 Not Detected (Not Detect); Influenza B Not Detected (Not Detect); Mycoplasma pneumoniae Not Detected (Not Detect); Parainfluenza Virus 1 Not Detected (Not Detect); Parainfluenza Virus 2 Not Detected (Not Detect); Parainfluenza Virus 3 Not Detected (Not Detect); Parainfluenza Virus 4 Not Detected (Not Detect); Respiratory Syncytial Virus Not Detected (Not Detect); SARS-CoV-2 Not Detected (Not Detect)
[2020-09-07 01:06] LABS: Basophils % 0.6 %; Eosinophils # 0.3 K/mcL (0.0-0.6); Eosinophils % 4.6 %; Hematocrit 23.5 % (37.5-50.1); Hemoglobin 7.2 g/dL (12.9-16.9); Immature Granulocytes % 0.3 % (0-4); Lymphocytes # 1.6 K/mcL (0.6-4.6); Lymphocytes % 24.8 %; Mean Corpuscular HGB Conc 30.6 g/dL (31.6-35.5); Mean Corpuscular Hemoglobin 26.9 pg (28.0-33.3); Mean Corpuscular Volume 87.7 fL (83.0-100.0); Mean Platelet Volume 10.5 fL (9.4-12.4); Monocytes # 0.6 K/mcL (0.0-1.3); Monocytes % 8.8 %; Platelet Count 314 K/mcL (140-400); Red Blood Count 2.68 M/mcL (4.19-5.50); Red Cell Distribution Width 16.6 % (11.5-14.5); Segmented Neutrophils % 60.9 %; White Blood Count 6.6 K/mcL (4.3-11.1)
[2020-09-07 01:17] LABS: Calcium 9.1 mg/dL (8.6-10.3); Potassium 4.8 mEq/L (3.5-5.1)
[2020-09-07] MEDS: Pantoprazole 40 MG VIAL IVP SCH ×2 (04:50→17:33)
[2020-09-07 06:15] LABS: Hematocrit 24.8 % (37.5-50.1); Hemoglobin 7.6 g/dL (12.9-16.9); Mean Corpuscular HGB Conc 30.6 g/dL (31.6-35.5); Mean Corpuscular Hemoglobin 26.8 pg (28.0-33.3); Mean Corpuscular Volume 87.3 fL (83.0-100.0); Mean Platelet Volume 10.4 fL (9.4-12.4); Platelet Count 328 K/mcL (140-400); Red Blood Count 2.84 M/mcL (4.19-5.50); Red Cell Distribution Width 16.4 % (11.5-14.5); White Blood Count 7.2 K/mcL (4.3-11.1)
[2020-09-07] MEDS ORDERED: Aspirin Enteric Coated 81 MG Tablet PO SCH (09:00)
[2020-09-07] MEDS: 0.9 % Sodium Chloride 500 ML IVC SCH ×2 (09:20→19:40)
[2020-09-07] MEDS ORDERED: Lidocaine -MPF 2% 2 ML VIAL ONE ×3 (09:52→10:32)
[2020-09-07] MEDS ORDERED: Ringers Solution, Lactated 1,000 ML IVC ONE (11:26)
[2020-09-07] MEDS: Tiotropium 10 INH DOSE IH SCH (11:30)
[2020-09-07] MEDS: Metoprolol XL (24 HR) Succ 50 MG TAB.ER.24H PO SCH (11:35)
[2020-09-07] MEDS ORDERED: 0.9 % Sodium Chloride 250 ML ONE (13:56)
[2020-09-07] MEDS: Ondansetron 4 MG/2 ML VIAL IVP PRN (13:57)
[2020-09-07] MEDS ORDERED: 0.9 % Sodium Chloride 250 ML IVC SCH (15:00)
[2020-09-07] MEDS ORDERED: rOPINIRole 1 MG TABLET PO ONE (17:51)
[2020-09-07 19:12] LABS: Hematocrit 24.3 % (37.5-50.1); Hemoglobin 7.5 g/dL (12.9-16.9); Mean Corpuscular HGB Conc 30.9 g/dL (31.6-35.5); Mean Corpuscular Hemoglobin 26.2 pg (28.0-33.3); Mean Platelet Volume 10.3 fL (9.4-12.4); Platelet Count 278 K/mcL (140-400); Red Blood Count 2.86 M/mcL (4.19-5.50); Red Cell Distribution Width 15.9 % (11.5-14.5); White Blood Count 6.7 K/mcL (4.3-11.1)
[2020-09-07] MEDS: *HR* LORazepam 1 MG TABLET PO SCH (19:34)
[2020-09-08 02:10] LABS: Hematocrit 25.7 % (37.5-50.1); Hemoglobin 7.9 g/dL (12.9-16.9); Mean Corpuscular HGB Conc 30.7 g/dL (31.6-35.5); Mean Corpuscular Hemoglobin 26.3 pg (28.0-33.3); Mean Corpuscular Volume 85.7 fL (83.0-100.0); Mean Platelet Volume 10.2 fL (9.4-12.4); Platelet Count 288 K/mcL (140-400); Red Cell Distribution Width 15.9 % (11.5-14.5); White Blood Count 6.6 K/mcL (4.3-11.1)
[2020-09-08 03:13] LABS: BUN/Creatinine Ratio 33 (6-26); Blood Urea Nitrogen 28 mg/dL (8-23); Calcium 9.2 mg/dL (8.6-10.3); Carbon Dioxide 25 mEq/L (23-29); Chloride 104 mEq/L (98-107); Glucose 104 mg/dL (70-105); Osmolality,Calculated 288 (280-300); Potassium 4.6 mEq/L (3.5-5.1); Sodium 136 mEq/L (136-145); eGFR For African Americans > 60 (> 60); eGFR For Non-African Americans > 60 (> 60)
[2020-09-08] MEDS: Pantoprazole 40 MG VIAL IVP SCH (05:11)
[2020-09-08] MEDS: Metoprolol XL (24 HR) Succ 50 MG TAB.ER.24H PO SCH (07:38)
[2020-09-08] MEDS: *HR* LORazepam 1 MG TABLET PO SCH ×2 (07:39→20:12)
[2020-09-08] MEDS: Tiotropium 10 INH DOSE IH SCH (07:44)
[2020-09-08] MEDS: polyethylene glycoL 3350 17 GM POWD.PACK PO SCH ×2 (15:32→20:12)
[2020-09-08] MEDS: Ondansetron 4 MG/2 ML VIAL IVP PRN (17:55)
[2020-09-08] MEDS ORDERED: *HR* Dextrose 50 % in Water (Vial) 50 ML VIAL IVP PRN (19:09)
[2020-09-08] MEDS ORDERED: Dextrose Gel 15 GM/37.5 ML TUBE PO PRN ×2 (19:09)
[2020-09-08] MEDS ORDERED: D5% in Water 1,000 ML IVC PRN (19:09)
[2020-09-08] MEDS ORDERED: Insulin DETEMIR 100 UNIT/ML X5UNITS SUBQ SCH (21:00)
[2020-09-08] MEDS ORDERED: Insulin LISPRO 300 UNITS/3 ML VIAL SUBQ SCH (21:00)
[2020-09-09 02:12] LABS: Hematocrit 26.2 % (37.5-50.1); Hemoglobin 7.9 g/dL (12.9-16.9); Mean Corpuscular HGB Conc 30.2 g/dL (31.6-35.5); Mean Corpuscular Hemoglobin 25.6 pg (28.0-33.3); Mean Corpuscular Volume 85.1 fL (83.0-100.0); Mean Platelet Volume 10.6 fL (9.4-12.4); Platelet Count 317 K/mcL (140-400); Red Blood Count 3.08 M/mcL (4.19-5.50); Red Cell Distribution Width 15.9 % (11.5-14.5); White Blood Count 7.1 K/mcL (4.3-11.1)
[2020-09-09 02:35] LABS: BUN/Creatinine Ratio 22 (6-26); Blood Urea Nitrogen 17 mg/dL (8-23); Calcium 9.1 mg/dL (8.6-10.3); Carbon Dioxide 27 mEq/L (23-29); Chloride 105 mEq/L (98-107); Glucose 145 mg/dL (70-105); Osmolality,Calculated 288 (280-300); Potassium 4.7 mEq/L (3.5-5.1); Sodium 137 mEq/L (136-145); eGFR For African Americans > 60 (> 60); eGFR For Non-African Americans > 60 (> 60)
[2020-09-09] MEDS ORDERED: Bisacodyl 10 MG RECTAL SUPPOSITORY RC ONE (07:19)
[2020-09-09] MEDS: Tiotropium 10 INH DOSE IH SCH (07:40)
[2020-09-09] MEDS: polyethylene glycoL 3350 17 GM POWD.PACK PO SCH (08:28)
[2020-09-09] MEDS: *HR* LORazepam 1 MG TABLET PO SCH (08:29)
[2020-09-09] MEDS: Metoprolol XL (24 HR) Succ 50 MG TAB.ER.24H PO SCH (08:29)
[2020-09-09] MEDS: Insulin LISPRO 300 UNITS/3 ML VIAL SUBQ SCH ×2 (08:30→12:28)
[2020-09-09 10:01] VITALS: BP 106/65
== END 2020-09-09 13:35 | disposition home or self-care (01) | DRG 377 ==
LOC: EMEROOARM 10:33 → 2NNU 10:33 → SUATTDRO 09-07 20:58 → 3ANU 09-09 09:42
PROVIDERS: ADMIT Internal Medicine; ATTEND Internal Medicine

== ENCOUNTER 2020-09-24 18:48 | Observation (INO) ==
[2020-09-24 19:43] LABS: Basophils % 0.3 %; Eosinophils # 1.6 K/mcL (0.0-0.6); Eosinophils % 16.6 %; Hematocrit 27.4 % (37.5-50.1); Hemoglobin 8.1 g/dL (12.9-16.9); Immature Granulocytes % 0.2 % (0-4); Lymphocytes % 20.2 %; Mean Corpuscular HGB Conc 29.6 g/dL (31.6-35.5); Mean Corpuscular Hemoglobin 26.1 pg (28.0-33.3); Mean Corpuscular Volume 88.4 fL (83.0-100.0); Mean Platelet Volume 9.8 fL (9.4-12.4); Monocytes # 0.5 K/mcL (0.0-1.3); Monocytes % 5.3 %; Neutrophils # 5.6 K/mcL (1.6-8.9); Platelet Count 383 K/mcL (140-400); Red Cell Distribution Width 17.7 % (11.5-14.5); Segmented Neutrophils % 57.4 %; White Blood Count 9.8 K/mcL (4.3-11.1)
[2020-09-24] MEDS ORDERED: 0.9 % Sodium Chloride 1,000 ML IVC ONE (19:48)
[2020-09-24] MEDS ORDERED: Ondansetron 4 MG/2 ML VIAL IVP ONE (19:48)
[2020-09-24 19:51] LABS: INR 1.8; Prothrombin Time 20.1 Seconds (9.4-12.1)
[2020-09-24 19:53] LABS: Activated Partial Thrombo Time 32.8 Seconds (26.0-36.0)
[2020-09-24 20:21] LABS: Alanine Aminotransferase 6 Units/L (7-52); Albumin 3.7 g/dL (3.5-5.7); Albumin/Globulin Ratio 1.4 (1.1-2.2); Alkaline Phosphatase 88 Units/L (34-104); Aspartate Amino Transferase 12 Units/L (13-39); BUN/Creatinine Ratio 21 (6-26); Bilirubin,Direct 0.1 mg/dL (0.0-0.2); Bilirubin,Indirect 0.3 mg/dL (0.0-1.0); Bilirubin,Total 0.4 mg/dL (0.3-1.0); Blood Urea Nitrogen 24 mg/dL (8-23); Calcium 8.9 mg/dL (8.6-10.3); Carbon Dioxide 27 mEq/L (23-29); Chloride 101 mEq/L (98-107); Globulin 2.7 g/dL (2.4-3.5); Glucose 133 mg/dL (70-105); Osmolality,Calculated 290 (280-300); Potassium 3.8 mEq/L (3.5-5.1); Sodium 137 mEq/L (136-145); Total Protein 6.4 g/dL (6.4-8.9); Troponin I 0.06 ng/mL (< 0.04); eGFR For African Americans > 60 (> 60); eGFR For Non-African Americans > 60 (> 60)
[2020-09-24 20:34] LABS: Influenza A PCR Negative (Negative); Influenza B PCR Negative (Negative); Resp. Syncytial Virus PCR Negative (Negative)
[2020-09-24 20:48] LABS: SARS-CoV-2 by PCR (In House) Negative (Negative)
[2020-09-24 22:25] LABS: Bilirubin,Urine Negative (Negative); Blood,Urine Negative (Negative); Clarity,Urine Clear (Clear); Color,Urine Light-Yellow (Yellow); Glucose,Urine (UA) Normal (Normal); Ketones,Urine Trace mg/dL (Negative); Leukocyte Esterase,Urine Negative (Negative); Nitrite,Urine Negative (Negative); PH,Urine 5.5 pH Units (5.0-8.0); Protein,Urine Trace mg/dL (Neg-Trace); Specific Gravity,Urine 1.019 (1.010-1.025); Urobilinogen,Urine Normal (Normal)
[2020-09-24] MEDS ORDERED: Ondansetron 4 MG/2 ML VIAL IVP PRN (22:42)
[2020-09-24] MEDS ORDERED: Naloxone 0.4 MG/ML INJ IVP PRN (22:42)
[2020-09-24] MEDS ORDERED: 0.9 % Sodium Chloride 250 ML ONE (23:10)
[2020-09-25] MEDS ORDERED: Acetaminophen 325 MG TABLET PO PRN (02:18)
[2020-09-25] MEDS: Albuterol 2.5 MG/3 ML NEBULIZER IH PRN (03:57)
[2020-09-25 05:26] LABS: Basophils % 0.3 %; Eosinophils # 1.9 K/mcL (0.0-0.6); Eosinophils % 18.7 %; Hematocrit 28.3 % (37.5-50.1); Hemoglobin 8.7 g/dL (12.9-16.9); Immature Granulocytes % 0.4 % (0-4); Lymphocytes # 2.2 K/mcL (0.6-4.6); Lymphocytes % 21.4 %; Mean Corpuscular HGB Conc 30.7 g/dL (31.6-35.5); Mean Corpuscular Volume 87.9 fL (83.0-100.0); Mean Platelet Volume 10.2 fL (9.4-12.4); Monocytes # 0.7 K/mcL (0.0-1.3); Monocytes % 6.5 %; Neutrophils # 5.4 K/mcL (1.6-8.9); Platelet Count 350 K/mcL (140-400); Red Blood Count 3.22 M/mcL (4.19-5.50); Red Cell Distribution Width 17.2 % (11.5-14.5); Segmented Neutrophils % 52.7 %; White Blood Count 10.2 K/mcL (4.3-11.1)
[2020-09-25 05:47] LABS: % Iron Saturation 92 % (20-55); BUN/Creatinine Ratio 21 (6-26); Blood Urea Nitrogen 20 mg/dL (8-23); Calcium 8.9 mg/dL (8.6-10.3); Carbon Dioxide 25 mEq/L (23-29); Chloride 107 mEq/L (98-107); Glucose 100 mg/dL (70-105); Iron 301 mcg/dL (65-175); Osmolality,Calculated 293 (280-300); Potassium 3.6 mEq/L (3.5-5.1); Sodium 140 mEq/L (136-145); Transferrin 234 mg/dL (203-362); eGFR For African Americans > 60 (> 60); eGFR For Non-African Americans > 60 (> 60)
[2020-09-25 05:50] LABS: Troponin I 0.04 ng/mL (< 0.04)
[2020-09-25] MEDS ORDERED: Acetaminophen 325 MG TABLET PO SCH (06:00)
[2020-09-25 06:05] LABS: Ferritin 18 ng/mL (20-250)
[2020-09-25 06:11] LABS: Folate 9.6 ng/mL (3.0-16.0)
[2020-09-25 06:12] LABS: Vitamin B12 > 1500 pg/mL (250-1100)
[2020-09-25] MEDS: Sucralfate 1 GM TABLET PO SCH ×4 (07:53→21:57)
[2020-09-25] MEDS: Cyanocobalamin (B-12) 1,000 MCG TABLET PO SCH (07:54)
[2020-09-25] MEDS: Metoprolol XL (24 HR) Succ 50 MG TAB.ER.24H PO SCH (07:54)
[2020-09-25] MEDS: Ascorbic Acid 500 MG TABLET PO SCH (07:54)
[2020-09-25] MEDS ORDERED: Apixaban 5 MG TABLET PO SCH (09:00)
[2020-09-25] MEDS: Tiotropium 10 INH DOSE IH SCH (09:09)
[2020-09-25] MEDS ORDERED: Prochlorperazine 10 MG/2 ML VIAL IVP PRN (11:07)
[2020-09-25 11:35] LABS: Lipase 5 Units/L (11-82)
[2020-09-25] MEDS ORDERED: *HR* OxyCODONE Immed Rel 5 MG TABLET PO PRN ×2 (16:43)
[2020-09-25] MEDS ORDERED: traZODone 50 MG TABLET PO SCH (21:00)
[2020-09-25] MEDS ORDERED: *HR* LORazepam 1 MG TABLET PO SCH (21:00)
[2020-09-26 04:01] LABS: BUN/Creatinine Ratio 16 (6-26); Blood Urea Nitrogen 12 mg/dL (8-23); Calcium 9.1 mg/dL (8.6-10.3); Carbon Dioxide 26 mEq/L (23-29); Chloride 106 mEq/L (98-107); Glucose 89 mg/dL (70-105); Osmolality,Calculated 289 (280-300); Potassium 3.8 mEq/L (3.5-5.1); Sodium 140 mEq/L (136-145); eGFR For African Americans > 60 (> 60); eGFR For Non-African Americans > 60 (> 60)
[2020-09-26] MEDS: Albuterol 2.5 MG/3 ML NEBULIZER IH PRN (06:30)
[2020-09-26] MEDS: Insulin LISPRO 300 UNITS/3 ML VIAL SUBQ SCH ×2 (07:46→12:15)
[2020-09-26] MEDS ORDERED: *HR* LORazepam 0.5 MG TABLET PO SCH (09:00)
[2020-09-26] MEDS ORDERED: Gabapentin 100 MG CAPSULE PO SCH (09:00)
[2020-09-26] MEDS: Cyanocobalamin (B-12) 1,000 MCG TABLET PO SCH (09:37)
[2020-09-26] MEDS: Ascorbic Acid 500 MG TABLET PO SCH (09:37)
[2020-09-26] MEDS: Metoprolol XL (24 HR) Succ 50 MG TAB.ER.24H PO SCH (09:37)
[2020-09-26] MEDS: Sucralfate 1 GM TABLET PO SCH ×2 (09:37→12:14)
[2020-09-26 10:26] LABS: Hematocrit 30.4 % (37.5-50.1); Hemoglobin 9.2 g/dL (12.9-16.9); Mean Corpuscular HGB Conc 30.3 g/dL (31.6-35.5); Mean Corpuscular Hemoglobin 26.5 pg (28.0-33.3); Mean Corpuscular Volume 87.6 fL (83.0-100.0); Mean Platelet Volume 9.6 fL (9.4-12.4); Platelet Count 351 K/mcL (140-400); Red Blood Count 3.47 M/mcL (4.19-5.50); Red Cell Distribution Width 17.4 % (11.5-14.5); White Blood Count 8.9 K/mcL (4.3-11.1)
[2020-09-26 11:18] VITALS: BP 106/55
[2020-09-26] MEDS: Tiotropium 10 INH DOSE IH SCH (11:21)
== END 2020-09-26 14:20 | disposition home or self-care (01) ==
LOC: EMEROOARM 18:48 → 2NENU 18:48 → SUATTDRO 23:02 → 2NENU 23:58
PROVIDERS: ADMIT Internal Medicine; ATTEND Internal Medicine

== ENCOUNTER 2020-10-02 06:44 | Inpatient (IN) ==
[2020-10-02] MEDS ORDERED: Heparin 1,000 UNITS/500 mL 2,000 ML ONE (07:22)
[2020-10-02] MEDS ORDERED: *HR* Heparin 10,000 UNIT/10 ML VIAL ONE (07:22)
[2020-10-02] MEDS ORDERED: Protamine Sulfate 50 MG/5 ML VIAL IVP ONE (07:22)
[2020-10-02] MEDS ORDERED: 0.9 % Sodium Chloride 1,000 ML ONE ×2 (07:27→09:44)
[2020-10-02] MEDS ORDERED: *HR* OxyCODONE Immed Rel 5 MG TABLET PO PRN ×2 (07:37→10:51)
[2020-10-02] MEDS ORDERED: *HR* Metoprolol 5 MG/5 ML VIAL IVP PRN (07:37)
[2020-10-02] MEDS ORDERED: Ondansetron 4 MG/2 ML VIAL IVP PRN (07:37)
[2020-10-02] MEDS ORDERED: Albuterol 2.5 MG/3 ML NEBULIZER IH PRN ×2 (07:37→10:51)
[2020-10-02] MEDS ORDERED: *HR* FentaNYL (PF) 100 MCG/2 ML VIAL IVP PRN (07:37)
[2020-10-02] MEDS: 0.9 % Sodium Chloride 1,000 ML IVC SCH ×2 (07:47→14:00)
[2020-10-02] MEDS ORDERED: *HR* Vasopressin 20 UNIT/ML VIAL ONE (07:58)
[2020-10-02] MEDS ORDERED: ISOVUE-370 200 ML INFUS..BTL ONE (08:43)
[2020-10-02] MEDS ORDERED: Perflutren Lipid Microsphere 1.3 ML in 0.9 % Sodium Chloride 8.7 ML IVP PRN (10:44)
[2020-10-02] MEDS ORDERED: traZODone 50 MG TABLET PO PRN (10:51)
[2020-10-02] MEDS ORDERED: Nitroglycerin 0.4 MG TAB.SUBL SL PRN (10:51)
[2020-10-02] MEDS ORDERED: Dextrose Gel 15 GM/37.5 ML TUBE PO PRN ×2 (10:58)
[2020-10-02] MEDS ORDERED: *HR* Dextrose 50 % in Water (Vial) 50 ML VIAL IVP PRN (10:58)
[2020-10-02] MEDS ORDERED: D5% in Water 1,000 ML IVC PRN (10:58)
[2020-10-02] MEDS ORDERED: Lidocaine -MPF 2% 5 ML VIAL SQ ONE (11:00)
[2020-10-02] MEDS ORDERED: *HR* Rocuronium Bromide 50 MG/5 ML VIAL IVP ONE (11:00)
[2020-10-02] MEDS ORDERED: *HR* Phenylephrine 10 MG/ML VIAL IVC ONE (11:00)
[2020-10-02] MEDS ORDERED: Ondansetron 4 MG/2 ML VIAL IVP ONE (11:00)
[2020-10-02] MEDS ORDERED: Lidocaine -MPF 4% 5 ML AMPUL TP ONE (11:00)
[2020-10-02] MEDS ORDERED: *HR* Propofol 200 MG/20 ML VIAL IVP ONE (11:00)
[2020-10-02] MEDS ORDERED: *HR* Succinylcholine 200 MG/10 ML VIAL IVP ONE (11:00)
[2020-10-02] MEDS: Sucralfate 1 GM TABLET PO SCH ×3 (12:09→20:20)
[2020-10-02] MEDS: Insulin LISPRO 300 UNITS/3 ML VIAL SUBQ SCH ×2 (12:09→17:11)
[2020-10-02] MEDS: Apixaban 5 MG TABLET PO SCH (20:20)
[2020-10-02] MEDS ORDERED: *HR* LORazepam 1 MG TABLET PO SCH (21:00)
[2020-10-03 01:33] LABS: Basophils % 0.4 %; Eosinophils % 0.3 %; Hematocrit 27.7 % (37.5-50.1); Hemoglobin 8.2 g/dL (12.9-16.9); Immature Granulocytes % 0.5 % (0-4); Lymphocytes # 1.3 K/mcL (0.6-4.6); Lymphocytes % 15.8 %; Mean Corpuscular HGB Conc 29.6 g/dL (31.6-35.5); Mean Corpuscular Hemoglobin 27.4 pg (28.0-33.3); Mean Corpuscular Volume 92.6 fL (83.0-100.0); Mean Platelet Volume 10.1 fL (9.4-12.4); Monocytes # 0.6 K/mcL (0.0-1.3); Monocytes % 7.3 %; Platelet Count 304 K/mcL (140-400); Red Blood Count 2.99 M/mcL (4.19-5.50); Segmented Neutrophils % 75.7 %; White Blood Count 7.9 K/mcL (4.3-11.1)
[2020-10-03 01:39] LABS: INR 1.5; Prothrombin Time 16.6 Seconds (9.4-12.1)
[2020-10-03 01:52] LABS: BUN/Creatinine Ratio 23 (6-26); Blood Urea Nitrogen 18 mg/dL (8-23); Calcium 8.3 mg/dL (8.6-10.3); Carbon Dioxide 27 mEq/L (23-29); Chloride 107 mEq/L (98-107); Glucose 118 mg/dL (70-105); Osmolality,Calculated 293 (280-300); Sodium 140 mEq/L (136-145); eGFR For African Americans > 60 (> 60); eGFR For Non-African Americans > 60 (> 60)
[2020-10-03 07:08] VITALS: BP 118/61
[2020-10-03] MEDS ORDERED: Tiotropium 10 INH DOSE IH ONE (07:50)
[2020-10-03] MEDS: Sucralfate 1 GM TABLET PO SCH ×2 (08:14→12:35)
[2020-10-03] MEDS: Apixaban 5 MG TABLET PO SCH (08:15)
[2020-10-03] MEDS: Insulin LISPRO 300 UNITS/3 ML VIAL SUBQ SCH ×2 (08:22→12:35)
[2020-10-03] MEDS ORDERED: Gabapentin 300 MG CAPSULE PO SCH (09:00)
[2020-10-03] MEDS ORDERED: Isosorbide MONOnitrate (24 HR) 30 MG TAB.ER.24H PO SCH (09:00)
[2020-10-03] MEDS ORDERED: Cyanocobalamin (B-12) 1,000 MCG TABLET PO SCH (09:00)
[2020-10-03] MEDS ORDERED: Metoprolol XL (24 HR) Succ 50 MG TAB.ER.24H PO SCH (09:00)
[2020-10-03] MEDS ORDERED: Spironolactone 25 MG TABLET PO SCH (09:00)
[2020-10-03] MEDS ORDERED: Ascorbic Acid 500 MG TABLET PO SCH (09:00)
[2020-10-03] MEDS ORDERED: *HR* LORazepam 1 MG TABLET PO SCH (09:00)
[2020-10-03] MEDS ORDERED: Furosemide 20 MG TABLET PO SCH (09:00)
[2020-10-03 10:00] LABS: Hematocrit 27.5 % (37.5-50.1); Hemoglobin 8.4 g/dL (12.9-16.9); Mean Corpuscular HGB Conc 30.5 g/dL (31.6-35.5); Mean Corpuscular Hemoglobin 27.6 pg (28.0-33.3); Mean Corpuscular Volume 90.5 fL (83.0-100.0); Platelet Count 306 K/mcL (140-400); Red Blood Count 3.04 M/mcL (4.19-5.50); Red Cell Distribution Width 20.3 % (11.5-14.5); White Blood Count 10.5 K/mcL (4.3-11.1)
[2020-10-03] MEDS ORDERED: Tiotropium 10 INH DOSE IH SCH (10:00)
== END 2020-10-03 13:10 | disposition home or self-care (01) | DRG 274 ==
LOC: INVDIALAB 06:44 → 2NNU 11:30
PROVIDERS: ADMIT Internal Medicine Cardiovascular Disease; ATTEND Internal Medicine Cardiovascular Disease

== ENCOUNTER 2021-11-21 13:45 | Observation (INO) ==
[2021-11-21] MEDS ORDERED: Isovue-370 500 ML BOTTLE IVP ONE (13:59)
[2021-11-21 14:18] LABS: Hematocrit 28.8 % (37.5-50.1); Hemoglobin 8.9 g/dL (12.9-16.9); Mean Corpuscular HGB Conc 30.9 g/dL (31.6-35.5); Mean Corpuscular Volume 93.8 fL (83.0-100.0); Mean Platelet Volume 9.7 fL (9.4-12.4); Platelet Count 347 K/mcL (140-400); Red Blood Count 3.07 M/mcL (4.19-5.50); Red Cell Distribution Width 15.3 % (11.5-14.5); White Blood Count 9.4 K/mcL (4.3-11.1)
[2021-11-21 14:39] LABS: BUN/Creatinine Ratio 17 (6-26); Blood Urea Nitrogen 24 mg/dL (8-23); Calcium 9.3 mg/dL (8.6-10.3); Carbon Dioxide 26 mEq/L (23-29); Chloride 106 mEq/L (98-107); Ethanol < 10 mg/dL (Less than 10); Glucose 131 mg/dL (70-105); Osmolality,Calculated 292 (280-300); Potassium 4.6 mEq/L (3.5-5.1); Sodium 138 mEq/L (136-145); Troponin I < 0.03 ng/mL (< 0.04); eGFR For African Americans 60 (> 60); eGFR For Non-African Americans 49 (> 60)
[2021-11-21 14:41] LABS: INR 1.1; Prothrombin Time 11.9 Seconds (9.4-12.1)
[2021-11-21 14:43] LABS: Activated Partial Thrombo Time 33.1 Seconds (26.0-36.0)
[2021-11-21 15:32] LABS: Alanine Aminotransferase 8 Units/L (7-52); Albumin 4.1 g/dL (3.5-5.7); Albumin/Globulin Ratio 1.8 (1.1-2.2); Alkaline Phosphatase 58 Units/L (34-104); Aspartate Amino Transferase 10 Units/L (13-39); Bilirubin,Indirect 0.3 mg/dL (0.0-1.0); Bilirubin,Total 0.3 mg/dL (0.3-1.0); Globulin 2.3 g/dL (2.4-3.5); Total Protein 6.4 g/dL (6.4-8.9)
[2021-11-21] MEDS ORDERED: 0.9 % Sodium Chloride 1,000 ML IV ONE (15:58)
[2021-11-21] MEDS ORDERED: MOM Conc 10 ML UD.LIQ PO PRN (17:07)
[2021-11-21] MEDS ORDERED: Ondansetron ODT 4 MG TAB.RAPDIS SL PRN (17:07)
[2021-11-21] MEDS ORDERED: Mag Hydrox/Al Hydrox/Simeth 30 ML UDC PO PRN (17:07)
[2021-11-21] MEDS ORDERED: Naloxone 0.4 MG/ML INJ IVP PRN (17:07)
[2021-11-21] MEDS ORDERED: Melatonin 3 MG TABLET PO PRN (17:07)
[2021-11-21] MEDS ORDERED: Perflutren Lipid Microsphere 1.3 ML in 0.9 % Sodium Chloride 8.7 ML IVP PRN (17:10)
[2021-11-21] MEDS ORDERED: Dextrose 4 GM Chewable Tablets PO PRN ×2 (17:12)
[2021-11-21] MEDS ORDERED: *HR* Dextrose 50 % in Water (Syg) 50 ML SYRINGE IVP PRN (17:12)
[2021-11-21] MEDS ORDERED: D5% in Water 1,000 ML IVC PRN (17:12)
[2021-11-21 17:51] LABS: Bilirubin,Urine Negative (Negative); Blood,Urine Negative (Negative); Clarity,Urine Clear (Clear); Color,Urine Light-Yellow (Yellow); Glucose,Urine (UA) Normal (Normal); Ketones,Urine Negative (Negative); Leukocyte Esterase,Urine Negative (Negative); Nitrite,Urine Negative (Negative); Protein,Urine Trace mg/dL (Neg-Trace); Specific Gravity,Urine > 1.030 (1.010-1.025); Urobilinogen,Urine Normal (Normal)
[2021-11-21 18:01] LABS: Amphetamine Screen,Urine Negative ng/mL (Cutoff=1000); Barbiturate Screen,Urine Negative ng/mL (Cutoff=200); Benzodiazepines Screen,Urine Negative ng/mL (Cutoff=200); Cannabinoid Screen,Urine Negative ng/mL (Cutoff = 50); Cocaine Screen,Urine Negative ng/mL (Cutoff= 300); Opiate Screen,Urine Positive ng/mL (Cutoff=300); Phencyclidine Screen,Urine Negative ng/mL (Cutoff=25)
[2021-11-21] MEDS: Insulin LISPRO 300 UNITS/3 ML VIAL SUBQ SCH (18:48)
[2021-11-21] MEDS: Nicotine 21 MG PATCH.TD24 TD SCH (20:04)
[2021-11-21] MEDS ORDERED: Insulin LISPRO 300 UNITS/3 ML VIAL SUBQ SCH (21:00)
[2021-11-22] MEDS ORDERED: Ipratropium/Albuterol Neb 3 ML IH PRN (04:10)
[2021-11-22 06:01] LABS: Alanine Aminotransferase 6 Units/L (7-52); Albumin 3.7 g/dL (3.5-5.7); Albumin/Globulin Ratio 1.8 (1.1-2.2); Alkaline Phosphatase 52 Units/L (34-104); Aspartate Amino Transferase 8 Units/L (13-39); BUN/Creatinine Ratio 17 (6-26); Bilirubin,Total 0.3 mg/dL (0.3-1.0); Blood Urea Nitrogen 21 mg/dL (8-23); Calcium 8.8 mg/dL (8.6-10.3); Carbon Dioxide 26 mEq/L (23-29); Chloride 109 mEq/L (98-107); Chol/HDL Ratio 2.5 (0-4.9); Cholesterol 81 mg/dL (< 200); Globulin 2.1 g/dL (2.4-3.5); Glucose 101 mg/dL (70-105); HDL Cholesterol 33 mg/dL (40-59); LDL Cholesterol,Calculated 38 mg/dL (< 100); Osmolality,Calculated 291 (280-300); Potassium 4.6 mEq/L (3.5-5.1); Sodium 139 mEq/L (136-145); Total Protein 5.8 g/dL (6.4-8.9); Triglycerides 49 mg/dL (< 150); Troponin I < 0.03 ng/mL (< 0.04); eGFR For African Americans > 60 (> 60); eGFR For Non-African Americans 58 (> 60)
[2021-11-22 06:03] LABS: Prothrombin Time 11.5 Seconds (9.4-12.1)
[2021-11-22 06:11] LABS: Bilirubin,Urine Negative (Negative); Blood,Urine Negative (Negative); Clarity,Urine Clear (Clear); Color,Urine Colorless (Yellow); Glucose,Urine (UA) Normal (Normal); Ketones,Urine Negative (Negative); Leukocyte Esterase,Urine Negative (Negative); Nitrite,Urine Negative (Negative); Protein,Urine Negative (Neg-Trace); Specific Gravity,Urine 1.024 (1.010-1.025); Urobilinogen,Urine Normal (Normal)
[2021-11-22 06:27] LABS: Estimated Average Glucose 151 mg/dl; Hemoglobin A1C 6.9 %
[2021-11-22 07:58] VITALS: O2SAT 98
[2021-11-22] MEDS: Insulin LISPRO 300 UNITS/3 ML VIAL SUBQ SCH ×2 (08:23→11:44)
[2021-11-22] MEDS: Nicotine 21 MG PATCH.TD24 TD SCH (08:59)
[2021-11-22] MEDS ORDERED: Aspirin 81 MG TAB.CHEW PO SCH (09:00)
[2021-11-22 10:40] VITALS: BP 117/71; PULSE 93; TEMP 98.2
== END 2021-11-22 12:52 | disposition home or self-care (01) ==
LOC: 3BNU 13:45 → EMEROOARM 13:45 → SUATTDRO 16:34 → 3BNU 18:09
PROVIDERS: ADMIT Student in an Organized Health Care Education/Training Program; ATTEND Registered Nurse

== ENCOUNTER 2022-03-04 23:19 | Observation (INO) ==
[2022-03-05 02:44] LABS: BUN/Creatinine Ratio 21 (6-26); Blood Urea Nitrogen 25 mg/dL (8-23); Calcium 9.8 mg/dL (8.6-10.3); Carbon Dioxide 24 mEq/L (23-29); Chloride 107 mEq/L (98-107); Glucose 134 mg/dL (70-105); Osmolality,Calculated 296 (280-300); Potassium 4.4 mEq/L (3.5-5.1); Sodium 140 mEq/L (136-145)
[2022-03-05 02:45] LABS: Troponin I < 0.03 ng/mL (< 0.04)
[2022-03-05 02:47] LABS: Basophils % 0.4 %; Eosinophils # 0.1 K/mcL (0.0-0.6); Eosinophils % 0.9 %; Hematocrit 26.2 % (37.5-50.1); Hemoglobin 8.2 g/dL (12.9-16.9); Immature Granulocytes % 0.3 % (0-4); Lymphocytes # 1.8 K/mcL (0.6-4.6); Mean Corpuscular HGB Conc 31.3 g/dL (31.6-35.5); Mean Corpuscular Hemoglobin 30.3 pg (28.0-33.3); Mean Corpuscular Volume 96.7 fL (83.0-100.0); Mean Platelet Volume 9.4 fL (9.4-12.4); Monocytes # 0.6 K/mcL (0.0-1.3); Monocytes % 5.2 %; Neutrophils # 8.2 K/mcL (1.6-8.9); Platelet Count 496 K/mcL (140-400); Red Blood Count 2.71 M/mcL (4.19-5.50); Red Cell Distribution Width 18.5 % (11.5-14.5); Segmented Neutrophils % 76.2 %; White Blood Count 10.7 K/mcL (4.3-11.1)
[2022-03-05] MEDS ORDERED: 0.9 % Sodium Chloride 1,000 ML IV ONE (02:48)
[2022-03-05] MEDS ORDERED: *HR* FentaNYL (PF) 100 MCG/2 ML VIAL IVP ONE (02:48)
[2022-03-05] MEDS ORDERED: Ondansetron 4 MG/2 ML VIAL IVP STA (02:48)
[2022-03-05] MEDS ORDERED: Iopamidol - 370 500 ML MLS IVP ONE (02:48)
[2022-03-05 03:38] LABS: Influenza A PCR Negative (Negative); Influenza B PCR Negative (Negative); Resp. Syncytial Virus PCR Negative (Negative)
[2022-03-05 03:40] LABS: SARS-CoV-2 by PCR (In House) Negative (Negative)
[2022-03-05] MEDS ORDERED: Naloxone 0.4 MG/ML INJ IVP PRN (05:52)
[2022-03-05] MEDS ORDERED: Ondansetron 4 MG/2 ML VIAL IVP PRN (05:52)
[2022-03-05] MEDS ORDERED: Ringers Solution, Lactated 1,000 ML IVC SCH ×2 (06:00→14:06)
[2022-03-05 09:05] LABS: Prothrombin Time 11.3 Seconds (9.4-12.1)
[2022-03-05 09:15] LABS: Albumin 3.6 g/dL (3.5-5.7); Albumin/Globulin Ratio 1.9 (1.1-2.2); Bilirubin,Indirect 0.3 mg/dL (0.0-1.0); Bilirubin,Total 0.3 mg/dL (0.3-1.0); Globulin 1.9 g/dL (2.4-3.5); Total Protein 5.5 g/dL (6.4-8.9)
[2022-03-05] MEDS: Acetaminophen 325 MG TABLET PO PRN ×2 (09:24→22:16)
[2022-03-05] MEDS ORDERED: Albuterol 2.5 MG/3 ML NEBULIZER IH PRN (16:30)
[2022-03-05] MEDS: Metoprolol XL (24 HR) Succ 50 MG TAB.ER.24H PO SCH (16:52)
[2022-03-06] MEDS ORDERED: *HR* LORazepam 2 MG/ML VIAL IVP ONE (00:19)
[2022-03-06 03:01] LABS: Basophils % 0.2 %; Eosinophils # 0.1 K/mcL (0.0-0.6); Eosinophils % 1.1 %; Hematocrit 24.7 % (37.5-50.1); Hemoglobin 7.5 g/dL (12.9-16.9); Immature Granulocytes % 0.4 % (0-4); Lymphocytes # 1.2 K/mcL (0.6-4.6); Mean Corpuscular HGB Conc 30.4 g/dL (31.6-35.5); Mean Corpuscular Hemoglobin 30.1 pg (28.0-33.3); Mean Corpuscular Volume 99.2 fL (83.0-100.0); Mean Platelet Volume 9.1 fL (9.4-12.4); Monocytes # 0.5 K/mcL (0.0-1.3); Monocytes % 5.6 %; Neutrophils # 6.5 K/mcL (1.6-8.9); Platelet Count 409 K/mcL (140-400); Red Blood Count 2.49 M/mcL (4.19-5.50); Segmented Neutrophils % 78.7 %; White Blood Count 8.3 K/mcL (4.3-11.1)
[2022-03-06 03:12] LABS: Calcium 8.8 mg/dL (8.6-10.3); Magnesium 1.8 mg/dL (1.6-2.6); Potassium 4.1 mEq/L (3.5-5.1)
[2022-03-06] MEDS: Tiotropium 10 INH DOSE IH SCH (08:22)
[2022-03-06] MEDS: Metoprolol XL (24 HR) Succ 50 MG TAB.ER.24H PO SCH (08:27)
[2022-03-06] MEDS: Aspirin 81 MG TAB.CHEW PO SCH (08:28)
[2022-03-06] MEDS ORDERED: Aspirin 325 MG TABLET PO SCH (09:00)
[2022-03-06] MEDS ORDERED: *HR* Propofol 200 MG/20 ML VIAL IVP ONE (13:18)
[2022-03-06] MEDS ORDERED: Lidocaine -MPF 2% 5 ML VIAL ONE (13:18)
[2022-03-06] MEDS ORDERED: Ondansetron 4 MG/2 ML VIAL IVP PRN (13:38)
[2022-03-06] MEDS ORDERED: *HR* FentaNYL (PF) 100 MCG/2 ML VIAL IVP PRN (13:38)
[2022-03-06] MEDS ORDERED: *HR* Rocuronium Bromide 50 MG/5 ML VIAL ONE (13:40)
[2022-03-06] MEDS ORDERED: *HR* Succinylcholine 200 MG/10 ML VIAL IVP ONE (13:53)
[2022-03-06] MEDS ORDERED: 0.9 % Sodium Chloride 500 ML ONE (17:58)
[2022-03-06] MEDS ORDERED: 0.9 % Sodium Chloride 500 ML IVC ONE ×2 (18:09→18:41)
[2022-03-06 19:50] LABS: Hematocrit 23.2 % (37.5-50.1); Hemoglobin 7.3 g/dL (12.9-16.9)
[2022-03-06] MEDS: Sucralfate 1 GM TABLET PO SCH (20:52)
[2022-03-07 05:39] LABS: Basophils % 0.2 %; Eosinophils % 0.2 %; Hematocrit 24.2 % (37.5-50.1); Hemoglobin 7.4 g/dL (12.9-16.9); Immature Granulocytes % 0.3 % (0-4); Mean Corpuscular HGB Conc 30.6 g/dL (31.6-35.5); Mean Platelet Volume 9.4 fL (9.4-12.4); Monocytes # 0.4 K/mcL (0.0-1.3); Monocytes % 6.1 %; Platelet Count 368 K/mcL (140-400); Red Blood Count 2.47 M/mcL (4.19-5.50); Segmented Neutrophils % 77.2 %; White Blood Count 6.4 K/mcL (4.3-11.1)
[2022-03-07 05:47] LABS: Calcium 8.7 mg/dL (8.6-10.3); Potassium 4.1 mEq/L (3.5-5.1)
[2022-03-07] MEDS ORDERED: 0.9 % Sodium Chloride 250 ML IVC SCH (07:30)
[2022-03-07] MEDS: Sucralfate 1 GM TABLET PO SCH ×2 (08:09→21:23)
[2022-03-07] MEDS: Metoprolol XL (24 HR) Succ 50 MG TAB.ER.24H PO SCH (08:10)
[2022-03-07] MEDS: Aspirin 81 MG TAB.CHEW PO SCH (08:10)
[2022-03-07] MEDS ORDERED: Spironolactone 25 MG TABLET PO SCH (09:00)
[2022-03-07] MEDS: Tiotropium 10 INH DOSE IH SCH (10:49)
[2022-03-07] MEDS: Acetaminophen 325 MG TABLET PO PRN (11:39)
[2022-03-07] MEDS ORDERED: *HR* OxyCODONE ER (12 HR) 20 MG TABLET PO PRN (11:59)
[2022-03-07] MEDS: Gabapentin 300 MG CAPSULE PO SCH ×2 (14:15→21:23)
[2022-03-08] MEDS: Tiotropium 10 INH DOSE IH SCH (07:49)
[2022-03-08 09:20] VITALS: PULSE 87; TEMP 98.3; O2SAT 99
[2022-03-08] MEDS: Aspirin 81 MG TAB.CHEW PO SCH (09:21)
[2022-03-08] MEDS: Metoprolol XL (24 HR) Succ 50 MG TAB.ER.24H PO SCH (09:21)
[2022-03-08] MEDS: Gabapentin 300 MG CAPSULE PO SCH (09:21)
[2022-03-08] MEDS: Sucralfate 1 GM TABLET PO SCH (09:21)
[2022-03-08 10:23] LABS: Hematocrit 27.3 % (37.5-50.1); Hemoglobin 8.7 g/dL (12.9-16.9); Mean Corpuscular HGB Conc 31.9 g/dL (31.6-35.5); Mean Corpuscular Hemoglobin 30.2 pg (28.0-33.3); Mean Corpuscular Volume 94.8 fL (83.0-100.0); Mean Platelet Volume 9.1 fL (9.4-12.4); Platelet Count 342 K/mcL (140-400); Red Blood Count 2.88 M/mcL (4.19-5.50); Red Cell Distribution Width 17.1 % (11.5-14.5); White Blood Count 6.6 K/mcL (4.3-11.1)
[2022-03-08 11:59] LABS: Bilirubin,Urine Negative (Negative); Blood,Urine Negative (Negative); Clarity,Urine Clear (Clear); Color,Urine Colorless (Yellow); Glucose,Urine (UA) Normal (Normal); Ketones,Urine Negative (Negative); Leukocyte Esterase,Urine Negative (Negative); Mucus,Urine Few per lpf (None-Few); Nitrite,Urine Negative (Negative); PH,Urine 6.5 pH Units (5.0-8.0); Protein,Urine Negative (Neg-Trace); RBC,Urine 0-3 per hpf (0-3); Specific Gravity,Urine 1.007 (1.010-1.025); Urobilinogen,Urine Normal (Normal); WBC,Urine 0-3 per hpf (0-3)
[2022-03-08 13:45] VITALS: BP 110/60
== END 2022-03-08 17:38 | disposition home or self-care (01) ==
LOC: 2ANU 23:19 → EMEROOARM 23:19 → SUATTDRO 03-05 05:54 → 2ANU 03-05 06:24
PROVIDERS: ADMIT Internal Medicine; ATTEND General Practice